=== PATIENT | female | born 2005 | race Two or more races ===

== ENCOUNTER 2024-06-25 15:20 | Observation (INO) | payer MEDICAID ==
--- NOTE | 2024-06-25 21:00 | DVHDS2 ---
Physician Discharge Progress N Final Diagnosis: testing for GDM, A2 Operations or Procedures: Operations or Procedures 19yo IUP@31.4wks, +FM, denies UCs/VB/LOF VSS NST reactive PO hydrated FKC/PTL precautions reviewed. Condition on Discharge: Stable Disposition: Home Discharge Instructions: Diet: Consistent carbohydrate Activity: No Restrictions, As Tolerated Medications: see med list Follow Up Care: Specialist: f/u twice weekly Discharge Statement: "Patient was advised to return to the ER or call 911 if any headaches, dizziness, shortness of breath, chest pain, abdominal pain, bleeding, fevers, or worsening of medical condition. Patient was counseled about treatment plan, medications, possible side effects, patientverbalized understanding. All questions were answered to the best of my ability. This discharge took greater then 30 minutes in planning, reviewing documentation, counseling the patient, and discussing with other team members." Visit Coding OBGYN Date of Service: Jun 25, 2024 Billing Provider: XENA CR CNM SUSTAINABILITY MANAGER Common Visit Codes: [id number] OBS CARE (HIGH) SUSTAINABILITY MANAGER Procedure Codes: 70901-30- NON-STRESS TEST XENA CR CNM Jun 25, 2024 21:00
[2024-07-09] MEDS ORDERED: NIFE10CA52 PO (16:38)
[2024-07-12] MEDS ORDERED: INSU1INJ19 SC (14:10)
== END 2024-06-25 17:59 | disposition home or self-care (01) ==
LOC: LDRP 15:20 → UNDOADMOB 15:20 → LDRP 15:51 → UNDODISOB 17:59
PROVIDERS: ADMIT Obstetrics & Gynecology; ATTEND Obstetrics & Gynecology
DX: O24.419 Gestational diabetes mellitus in pregnancy, unspecified control (principal); Z98.890 Other specified postprocedural states; Z79.899 Other long term (current) drug therapy; Z3A.31 31 weeks gestation of pregnancy
CPT/HCPCS: 59025; 81002; 82948; 82962; 94760; G0378

== ENCOUNTER 2024-06-28 08:29 | Observation (INO) | payer MEDICAID ==
[2024-06-28] MEDS ORDERED: PREN-96 PO (11:06)
--- NOTE | 2024-06-28 11:55 | DVH ---
Procedure: US BIOPHYSICAL PROFILE 06/28/2024 11:21 AM Indication: GDMA2 Comparison: None Technique: Sonogram of gravid uterus utilizing grayscale and color techniques. FINDINGS: Single living intrauterine gestation. Presentation: Cephalic Placenta: Posterior heart rate: 159 bpm CARLENE: 13.1 cm, DVP: 4 cm Maternal cervix: Not visualized Biophysical Profile: breathing score: 2 movement score: 2 tone: 2 Quantitative CARLENE score: 2 Total score: 8/8 IMPRESSION: 1. Single living as above. 2. Biophysical profile score: 8/8.
--- NOTE | 2024-06-28 15:05 | DVHDS2 ---
Physician Discharge Progress N Final Diagnosis: iup at 32wks gdm Operations or Procedures: Operations or Procedures [id number],sono Condition on Discharge: Good Disposition: Home Discharge Instructions: Diet: Regular, Consistent carbohydrate Activity: No Restrictions, As Tolerated Medications: na Follow Up Care: Specialist: 4d Discharge Statement: "Patient was advised to return to the ER or call 911 if any headaches, dizziness, shortness of breath, chest pain, abdominal pain, bleeding, fevers, or worsening of medical condition. Patient was counseled about treatment plan, medications, possible side effects, patientverbalized understanding. All questions were answered to the best of my ability. This discharge took greater then 30 minutes in planning, reviewing documentation, counseling the patient, and discussing with other team members." Visit Coding OBGYN Date of Service: Jun 28, 2024 Billing Provider: BHARATH BURKS DO DIRECTOR OF NUCLEAR MEDICINE Common Visit Codes: [id number] INP/OBS CARE (HIGH) DIRECTOR OF NUCLEAR MEDICINE Procedure Codes: 80278-95- NON-STRESS TEST BHARATH BURKS DO Jun 28, 2024 15:05
[2024-07-09] MEDS ORDERED: NIFE10CA52 PO (16:38)
[2024-07-12] MEDS ORDERED: INSU1INJ19 SC (14:10)
== END 2024-06-28 12:26 | disposition home or self-care (01) ==
LOC: LDRP 10:58 → UNDOADMOB 10:58 → LDRP 11:04
PROVIDERS: ADMIT Obstetrics & Gynecology; ATTEND Obstetrics & Gynecology
DX: O24.419 Gestational diabetes mellitus in pregnancy, unspecified control (principal); Z98.890 Other specified postprocedural states; Z79.899 Other long term (current) drug therapy; Z3A.32 32 weeks gestation of pregnancy
CPT/HCPCS: 59025; 76819; 81002; G0378; 76818

== ENCOUNTER 2024-07-02 06:56 | Observation (INO) | payer MEDICAID ==
[~2024-07-02 06:56] MED LIST: PREN-96 PO
--- NOTE | 2024-07-02 15:52 | DVH ---
EXAM: US BIOPHYSICAL PROFILE HISTORY: GDMA2 COMPARISON: US BIOPHYSICAL PROFILE on DOS: 06/28/24 TECHNIQUE: Multiple transabdominal real-time grayscale sonographic images through the gravid uterus of the fetus with duplex Doppler color flow and M-mode spectral analysis Findings/Impression: Single live intrauterine in vertex presentation with heart rate of 140 bpm. Biophysical profile was performed with 2 points for respirations, 2 points for movement, 2 points for tone and 2 points for amniotic fluid index. Biophysical profile score of 8/8. Amniotic fluid is within normal limits with CARLENE 15.5 cm and MVP 5.5 cm. Normal CARLENE (5-25 cm) Normal MVP (2-8 cm)
--- NOTE | 2024-07-04 12:47 | DVHDS2 ---
Physician Discharge Progress N Final Diagnosis: iu[p at 32wks gdm Operations or Procedures: Operations or Procedures nst,sono Condition on Discharge: Good Disposition: Home Discharge Instructions: Diet: Consistent carbohydrate Activity: No Restrictions, As Tolerated Follow Up/Referral: [facility] at [facility]:00 pm for NST/BPP Medications: na Follow Up Care: Specialist: 1w Discharge Statement: "Patient was advised to return to the ER or call 911 if any headaches, dizziness, shortness of breath, chest pain, abdominal pain, bleeding, fevers, or worsening of medical condition. Patient was counseled about treatment plan, medications, possible side effects, patientverbalized understanding. All questions were answered to the best of my ability. This discharge took greater then 30 minutes in planning, reviewing documentation, counseling the patient, and discussing with other team members." Visit Coding OBGYN Date of Service: Jul 02, 2024 Billing Provider: BHARATH BURKS DO COUNTRY SALES MANAGER Common Visit Codes: [id number] INP/OBS CARE(HIGH) COUNTRY SALES MANAGER Procedure Codes: 02990-26- NON-STRESS TEST BHARATH BURKS DO Jul 04, 2024 12:47
== END 2024-07-02 16:15 | disposition home or self-care (01) ==
LOC: LDRP 14:41 → UNDOADMOB 14:41 → LDRP 15:03
PROVIDERS: ADMIT Obstetrics & Gynecology; ATTEND Obstetrics & Gynecology
DX: O24.419 Gestational diabetes mellitus in pregnancy, unspecified control (principal); Z98.890 Other specified postprocedural states; Z79.899 Other long term (current) drug therapy; Z3A.32 32 weeks gestation of pregnancy
CPT/HCPCS: 59025; 76819; 81002; 82948; 82962; G0378; 76818

== ENCOUNTER 2024-07-05 13:03 | Observation (INO) | payer MEDICAID ==
--- NOTE | 2024-07-05 14:14 | DVH ---
BIOPHYSICAL PROFILE HISTORY: GDMA2 TECHNIQUE: Multiple transabdominal real-time grayscale sonographic images through the gravid uterus of the fetus with duplex Doppler color flow and M-mode spectral analysis FINDINGS: BIOPHYSICAL PROFILE: breathing score: 2 movement score: 2 tone score: 2 Quantitative CARLENE score: 2 (CARLENE: 15.2 Cm.) Total score: 8 The cervix not well visualized. Single live fetus in cephalic presentation. heart rate 152 beats per minute. Posterior placenta without previa or abruption Possible nuchal cord is visualized. IMPRESSION: Biophysical profile score: 8 Possible nuchal cord is visualized.
--- NOTE | 2024-07-05 15:29 | DVHDS2 ---
Physician Discharge Progress N Final Diagnosis: 33wks gdm Operations or Procedures: Operations or Procedures nst,sono Condition on Discharge: Good Disposition: Home Discharge Instructions: Diet: Consistent carbohydrate Activity: No Restrictions, As Tolerated Medications: na Follow Up Care: Specialist: 1w Discharge Statement: "Patient was advised to return to the ER or call 911 if any headaches, dizziness, shortness of breath, chest pain, abdominal pain, bleeding, fevers, or worsening of medical condition. Patient was counseled about treatment plan, medications, possible side effects, patientverbalized understanding. All questions were answered to the best of my ability. This discharge took greater then 30 minutes in planning, reviewing documentati on, counseling the patient, and discussing with other team members." Visit Coding OBGYN Date of Service: Jul 05, 2024 Billing Provider: BHARATH BURKS DO PAINT STOCKMAN Common Visit Codes: 25461-OIRTQKM INP/OBS CARE (HIGH) PAINT STOCKMAN Procedure Codes: 75667-24- NON-STRESS TEST BHARATH BURKS DO Jul 05, 2024 15:29
== END 2024-07-05 16:32 | disposition home or self-care (01) ==
LOC: UNDOADMOB 13:03 → LDRP 13:03
PROVIDERS: ADMIT Obstetrics & Gynecology; ATTEND Obstetrics & Gynecology
DX: O24.419 Gestational diabetes mellitus in pregnancy, unspecified control (principal); Z98.890 Other specified postprocedural states; Z79.899 Other long term (current) drug therapy; Z3A.33 33 weeks gestation of pregnancy
CPT/HCPCS: 59025; 76819; 81002; 82948; 82962; G0378

== ENCOUNTER 2024-07-09 15:29 | Observation (INO) | payer MEDICAID ==
[~2024-07-09] VITALS: Ht 167.6 cm; Wt 110.2 kg
--- NOTE | 2024-07-09 16:11 | DVH ---
BIOPHYSICAL PROFILE HISTORY: GDMA2 Comparison Study: 07/05/2024 TECHNIQUE: Multiple real-time grayscale sonographic images through the gravid uterus of the fetus wi th duplex Doppler color flow and M-mode spectral analysis FINDINGS: BIOPHYSICAL PROFILE: breathing score: 2 movement score: 2 tone score: 2 Quantitative CARLENE score: 2 (CARLENE: 18.2 Cm.) Total score: 8 The cervix is not visualized Single live fetus in cephalic presentation. heart rate 155 beats per minute. Posterior placenta without previa or abruption IMPRESSION: Biophysical profile score: 8 No nuchal cord is visualized. Nuchal cord appears draped over the face at this time.
[2024-07-09] MEDS ORDERED: NIFE10CA52 PO ×3 (16:38)
[2024-07-09] MEDS: NIFEdipine 10 MG CAP PO ONE (17:05)
[2024-07-09] MEDS: BETAMETHASONE ACET (30mg/5ml) 5ml Vial 6mg/ml IM ONE (17:12)
[2024-07-09] MEDS: TERBUTALINE SULFATE 1 MG/ML 1ML VIAL SC SCH (17:17)
--- NOTE | 2024-07-09 17:26 | DVH ---
OBSTETRIC ULTRASOUND PRIOR TO 14 WEEKS CLINICAL INDICATION: PTL, cervial length TECHNIQUE: Multiple grayscale ultrasound images were obtained of the pelvis via transabdominal and tr ansvaginal approach for obstetric evaluation. Limited color Doppler and spectral Doppler acquisitions were also obtained. COMPARISON: None FINDINGS /IMPRESSION: 1. Current CARLENE 18.21 cm 2. presentation cephalic 3. Posterior position posterior 4. heart tones 155 beats per minute
[2024-07-09] MEDS: LACTATED RINGER'S 1,000 ML IV ONE (17:43)
--- NOTE | 2024-07-09 23:08 | DVHDS2 ---
Physician Discharge Progress N Final Diagnosis: testing for GDMA2/PTL Operations or Procedures: Operations or Procedures 19yo IUP@33.4wks VSS NST reactive TOCO: UCs noted, 1L LR IV bolus, terbutaline SQ x1, and first dose of betamethasone given; No UCs prior to D/C BPP/OB sono wnl FKC/PTL precautions reviewed Dr. Reveles consulted, agrees with POC. Rx sent for procardia. f/u in 24 hours for second dose of betamethasone Condition on Discharge: Stable Disposition: Home Discharge Instructions: Diet: Consistent carbohydrate Activity: See Comment Activity comment: pelvic rest Follow Up/Referral: [facility] at 7pm for scheduled NST and second dose of Celestone. Medications: see med list Follow Up Care: Specialist: f/u in 24 hours for second dose of betamethasone Discharge Statement: "Patient was advised to return to the ER or call 911 if any headaches, dizziness, shortness of breath, chest pain, abdominal pain, bleeding, fevers, or worsening of medical condition. Patient was counseled about treatment plan, medications, possible side effects, patientverbalized understanding. All questions were answered to the best of my ability. This discharge took greater then 30 minutes in planning, reviewing documentation, counseling the patient, and discussing with other team members." Visit Coding OBGYN Date of Service: Jul 09, 2024 Billing Provider: XENA CR CNM HEALTH CARE MARKETING MANAGER Common Visit Codes: [id number] OBS CARE (HIGH) HEALTH CARE MARKETING MANAGER Procedure Codes: 93773-95- NON-STRESS TEST XENA CR CNM Jul 09, 2024 23:08
== END 2024-07-09 20:17 | disposition home or self-care (01) ==
LOC: LDRP 15:29 → UNDOADMOB 15:29 → LDRP 15:33 → UNDODISOB 20:17
PROVIDERS: ADMIT Obstetrics & Gynecology; ATTEND Obstetrics & Gynecology
DX: O24.419 Gestational diabetes mellitus in pregnancy, unspecified control (principal); O60.03 Preterm labor without delivery, third trimester; Z3A.33 33 weeks gestation of pregnancy; Z79.899 Other long term (current) drug therapy
CPT/HCPCS: 59025; 76815; 76819; 81002; 82948; 82962; 94760; 96360; 96361; 96372; G0378; J0702; J3105

== ENCOUNTER 2024-07-10 19:00 | Observation (INO) | payer MEDICAID ==
[~2024-07-10] VITALS: Ht 64 cm; Wt 81.6 kg
[~2024-07-10 19:00] MED LIST changes: +NIFE10CA52 PO
[2024-07-10] MEDS: BETAMETHASONE ACET (30mg/5ml) 5ml Vial 6mg/ml IM ONE (20:49)
--- NOTE | 2024-07-10 22:59 | DVHDS2 ---
Physician Discharge Progress N Final Diagnosis: GDM,A2 and PTL Operations or Procedures: Operations or Procedures 19yo IUP@33.5wks VSS NST reactive TOCO: no UCs 2nd dose of celestone given FKC/PTL precautions reviewed Dr. Reveles consulted, agrees with POC. Condition on Discharge: Stable Disposition: Home Discharge Instructions: Diet: Consistent carbohydrate Activity: See Comment Activity comment: pelvic rest Medications: see med list Follow Up Care: Specialist: f/u twice weekly Discharge Statement: "Patient was advised to return to the ER or call 911 if any headaches, dizziness, shortness of breath, chest pain, abdominal pain, bleeding, fevers, or worsening of medical condition. Patient was counseled about treatment plan, medications, possible side effects, patientverbalized understanding. All questions were answered to the best of my ability. This discharge took greater then 30 minutes in planning, reviewing documentation, counseling the patient, and discussing with other team members." Visit Coding OBGYN Date of Service: Jul 10, 2024 Billing Provider: XENA CR CNM LASER SYSTEMS ENGINEER Common Visit Codes: [id number]-[id number] OBS CARE (HIGH) LASER SYSTEMS ENGINEER Procedure Codes: 19346-84- NON-STRESS TEST XENA CR CNM Jul 10, 2024 22:59
[2024-07-12] MEDS ORDERED: INSU1INJ19 SC (14:10)
== END 2024-07-10 21:20 | disposition home or self-care (01) ==
LOC: LDRP 19:00
PROVIDERS: ADMIT Obstetrics & Gynecology; ATTEND Obstetrics & Gynecology
DX: O24.419 Gestational diabetes mellitus in pregnancy, unspecified control (principal); O60.03 Preterm labor without delivery, third trimester; Z3A.33 33 weeks gestation of pregnancy; Z79.899 Other long term (current) drug therapy
CPT/HCPCS: 81002; 82948; 82962; 94760; 96372; G0378

== ENCOUNTER 2024-07-12 07:17 | Observation (INO) | payer MEDICAID ==
[~2024-07-12] VITALS: Ht 200.7 cm; Wt 86.2 kg
[2024-07-12] MEDS ORDERED: INSU1INJ19 SC ×2 (14:10)
--- NOTE | 2024-07-12 14:15 | DVH ---
BIOPHYSICAL PROFILE HISTORY: GDMA2, PTL Comparison Study: 07/09/2024 TECHNIQUE: Multiple real-time grayscale sonographic images through the gravid uterus of the fetus wi th duplex Doppler color flow and M-mode spectral analysis FINDINGS: BIOPHYSICAL PROFILE: breathing score: 2 movement score: 2 tone score: 2 Quantitative CARLENE score: 2 (CARLENE: 14.1 Cm.) Total score: 8 The cervix is not visualized Single live fetus in cephalic presentation. heart rate 159 beats per minute. Posterior placenta without previa or abruption Cervix measures 3.4 cm. IMPRESSION: Biophysical profile score: 8
--- NOTE | 2024-07-12 15:28 | DVHDS2 ---
Physician Discharge Progress N Final Diagnosis: 34 wks with gdm Operations or Procedures: Operations or Procedures nst,ivon 34 wks Condition on Discharge: Good Disposition: Home Discharge Instructions: Diet: Consistent carbohydrate Activity: No Restrictions, As Tolerated Medications: na Follow Up Care: Specialist: 1w Discharge Statement: "Patient was advised to return to the ER or call 911 if any headaches, dizziness, shortness of breath, chest pain, abdominal pain, bleeding, fevers, or worsening of medical condition. Patient was counseled about treatment plan, medications, possible side effects, patientverbalized understanding. All questions were answered to the best of my ability. This discharge took greater then 30 minutes in planning, reviewing documentation, counseling the patient, and discussing with other team members." Visit Coding OBGYN Date of Service: Jul 12, 2024 Billing Provider: BHARATH BURKS DO TEST CENTER ADMINISTRATOR Common Visit Codes: 90450-[id number] INP/OBS CARE (HIGH) TEST CENTER ADMINISTRATOR Procedure Codes: 01592-50- NON-STRESS TEST BHARATH BURKS DO Jul 12, 2024 15:28
== END 2024-07-12 15:45 | disposition home or self-care (01) ==
LOC: LDRP 13:08 → UNDOADMOB 13:08 → LDRP 13:15
PROVIDERS: ADMIT Obstetrics & Gynecology; ATTEND Obstetrics & Gynecology
DX: O24.419 Gestational diabetes mellitus in pregnancy, unspecified control (principal); O60.03 Preterm labor without delivery, third trimester; Z98.890 Other specified postprocedural states; Z79.899 Other long term (current) drug therapy; Z3A.34 34 weeks gestation of pregnancy
CPT/HCPCS: 59025; 76819; 81002; 82948; 96360; 96361; G0378

== ENCOUNTER 2024-07-16 06:38 | Observation (INO) | payer MEDICAID ==
[~2024-07-16 06:38] MED LIST changes: +INSU1INJ19 SC
--- NOTE | 2024-07-16 14:36 | DVH ---
BIOPHYSICAL PROFILE HISTORY: GDMA2/PTL Comparison Study: None TECHNIQUE: Multiple real-time grayscale sonographic images through the gravid uterus of the fetus wi th duplex Doppler color flow and M-mode spectral analysis FINDINGS: BIOPHYSICAL PROFILE: breathing score: 2 movement score: 2 tone score: 2 Quantitative CARLENE score: 2 (CARLENE: 14.2 Cm.) Total score: 8 The cervix is not visualized Single live fetus in cephalic presentation. heart rate 153 beats per minute. Posterior placenta without previa or abruption IMPRESSION: Biophysical profile score: 8
--- NOTE | 2024-07-16 15:48 | DVHDS2 ---
Physician Discharge Progress N Final Diagnosis: GDM Hx of labor Commentary: Commentary PATIENT: JORGE LUIS LOVE ACCT: [id number] UNIT: [id number] : 2005 LOC: [facility] ROOM / BED: [facility] / A AGE / SEX: 19 / F ADM STATUS: ADM IN SERVICE 1323 ORDERING PHYSICIAN: KHUSHBOO JOSHI DO PROCEDURE(s): BPP - BIOPHYSICAL PROFILE REASON: GDMA2/PTL ORDER NUMBER(s): [id number], ACCESSION NUMBER(s): [id number] BIOPHYSICAL PROFILE HISTORY: GDMA2/PTL Comparison Study: None TECHNIQUE: Multiple real-time grayscale sonographic images through the gravid uterus of the fetus with duplex Doppler color flow and M-mode spectral analysis FINDINGS: BIOPHYSICAL PROFILE: breathing score: 2 movement score: 2 tone score: 2 Quantitative CARLENE score: 2 (CARLENE: 14.2 Cm.) Total score: 8 The cervix is not visualized Single live fetus in cephalic presentation. heart rate 153 beats per minute. Posterior placenta without previa or abruption IMPRESSION: Biophysical profile score: 8 Condition on Discharge: Stable Disposition: Home Discharge Instructions: Diet: Consistent carbohydrate Activity: Light activity Follow Up/Referral: 3-4 days Medications: N/A Follow Up Care: Discharge Statement: "Patient was advised to return to the ER or call 911 if any headaches, dizziness, shortness of breath, chest pain, abdominal pain, bleeding, fevers, or worsening of medical condition. Patient was counseled about treatment plan, medications, possible side effects, patientverbalized understanding. All questions were answered to the best of my ability. This discharge took greater then 30 minutes in planning, reviewing documentation, counseling the patient, and discussing with other team members." Visit Coding OBGYN Date of Service: Jul 16, 2024 Billing Provider: KHUSHBOO JOSHI DO STORE SALES MANAGER Common Visit Codes: 30065-NND/OBS SAME DATE (MOD) STORE SALES MANAGER Procedure Codes: 08566-47- NON-STRESS TEST KHUSHBOO JOSHI DO Jul 16, 2024 15:48
== END 2024-07-16 16:40 | disposition home or self-care (01) ==
LOC: LDRP 13:14 → UNDOADMOB 13:14 → LDRP 13:24
PROVIDERS: ADMIT Obstetrics & Gynecology; ATTEND Obstetrics & Gynecology
DX: O60.03 Preterm labor without delivery, third trimester (principal); O24.419 Gestational diabetes mellitus in pregnancy, unspecified control; Z98.890 Other specified postprocedural states; Z79.899 Other long term (current) drug therapy; Z3A.34 34 weeks gestation of pregnancy
CPT/HCPCS: 59025; 76819; 81002; 82948; 82962; 94760; G0378

== ENCOUNTER 2024-07-19 11:14 | Observation (INO) | payer MEDICAID ==
--- NOTE | 2024-07-19 12:02 | DVH ---
Procedure: US BIOPHYSICAL PROFILE 07/19/2024 11:24 AM Indication: gdma2 Comparison: US BIOPHYSICAL PROFILE on DOS: 07/16/24, US BIOPHYSICAL PROFILE on DOS: 07/12/24, US BIOPHY SICAL PROFILE on DOS: 07/09/24 Technique: Sonogram of gravid uterus utilizing grayscale and color techniques. FINDINGS: Single living intrauterine gestation. Presentation: Cephalic Placenta: Posterior, grade 2 heart rate: 143 bpm CARLENE: 12.3 cm, DVP: 3.8 cm Maternal cervix: 2.5 cm in length in the transvaginal scan Biophysical Profile: breathing score: 2 movement score: 2 tone: 2 Quantitative CARLENE score: 2 Total score: 8/8 IMPRESSION: 1. Single living as above. 2. Biophysical profile score: 8/8.
--- NOTE | 2024-07-19 13:44 | DVHDS2 ---
Physician Discharge Progress N Final Diagnosis: gdm,ptl 35wks Operations or Procedures: Operations or Procedures nst,sono Condition on Discharge: Good Disposition: Home Discharge Instructions: Diet: Consistent carbohydrate Activity: No Restrictions, As Tolerated Medications: na Follow Up Care: Specialist: 1w Discharge Statement: "Patient was advised to return to the ER or call 911 if any headaches, dizziness, shortness of breath, chest pain, abdominal pain, bleeding, fevers, or worsening of medical condition. Patient was counseled about treatment plan, medications, possible side effects, patientverbalized understanding. All questions were answered to the best of my ability. This discharge took greater then 30 minutes in planning, reviewing documen tation, counseling the patient, and discussing with other team members." Visit Coding OBGYN Date of Service: Jul 19, 2024 Billing Provider: BHARATH BURKS DO ASSISTANT ACCOUNTING MANAGER Common Visit Codes: [id number] INP/OBS CARE (HIGH) ASSISTANT ACCOUNTING MANAGER Procedure Codes: 83634-84- NON-STRESS TEST BHARATH BURKS DO Jul 19, 2024 13:44
== END 2024-07-19 12:26 | disposition home or self-care (01) ==
LOC: LDRP 11:14
PROVIDERS: ADMIT Obstetrics & Gynecology; ATTEND Obstetrics & Gynecology
DX: O24.419 Gestational diabetes mellitus in pregnancy, unspecified control (principal); O60.03 Preterm labor without delivery, third trimester; Z3A.35 35 weeks gestation of pregnancy; Z79.899 Other long term (current) drug therapy
CPT/HCPCS: 59025; 76817; 76819; 81002; 82948; 82962; 94760; G0378

== ENCOUNTER 2024-07-23 07:07 | Observation (INO) | payer MEDICAID ==
[~2024-07-23] VITALS: Ht 167.6 cm; Wt 108.9 kg
--- NOTE | 2024-07-23 15:04 | DVH ---
BIOPHYSICAL PROFILE HISTORY: GDMA2/PTL TECHNIQUE: Multiple transabdominal real-time grayscale sonographic images through the gravid uterus of the fetus with duplex Doppler color flow and M-mode spectral analysis FINDINGS: BIOPHYSICAL PROFILE: breathing score: 2 movement score: 2 tone score: 2 Quantitative CARLENE score: 2 (CARLENE: 13.97 Cm.) Total score: 8 The cervix is not well-visualized Single live fetus in cephalic presentation. heart rate 144 beats per minute. Anterior placenta without previa or abruption IMPRESSION: Biophysical profile score: 8
[2024-07-23] MEDS: TERBUTALINE SULFATE 1 MG/ML 1ML VIAL SC SCH (15:40)
--- NOTE | 2024-07-23 23:23 | DVHDS2 ---
Physician Discharge Progress N Final Diagnosis: testing for GDM, A2 Operations or Procedures: Operations or Procedures 19yo IUP@35.4wks, +FM, denies UCs/LOF/VB, taking procardia. Pt has received 2 doses of betamethasone during previous visits. VSS NST reactive TOCO: UCs noted, terbutaline SQx1 given then no UCs FKC/PTL precautions reviewed Dr. Reveles consulted, agrees with POC. Other Interventions Other Interventions [place] [id number] Ph: [phone] DIAGNOSTIC IMAGING Diagnostic Imaging Report : [id number] Signed PATIENT: JORGE LUIS LOVE ACCT: [id number] UNIT: [id number] : 2005 LOC: [facility] ROOM / BED: TRIAGE1 / A AGE / SEX: 19 / F ADM STATUS: ADM IN SERVICE 1428 ORDERING PHYSICIAN: XENA CR CNM PROCEDURE(s): BPP - BIOPHYSICAL PROFILE REASON: GDMA2/PTL ORDER NUMBER(s): [id number], ACCESSION NUMBER(s): [id number] BIOPHYSICAL PROFILE HISTORY: GDMA2/PTL TECHNIQUE: Multiple transabdominal real-time grayscale sonographic images through the gravid uterus of the fetus with duplex Doppler color flow and M-mode spectral analysis FINDINGS: BIOPHYSICAL PROFILE: breathing score: 2 movement score: 2 tone score: 2 Quantitative CARLENE score: 2 (CARLENE: 13.97 Cm.) Total score: 8 The cervix is not well-visualized Single live fetus in cephalic presentation. heart rate 144 beats per minute. Anterior placenta without previa or abruption IMPRESSION: Biophysical profile score: 8 ATED BY: MILLY DE LEÓN DO DICTATED DATE/TIME: 07/23/241501 SIGNED BY: MILLY DE LEÓN DO SIGNED DATE/TIME: 07/23/241501 CC: Condition on Discharge: Stable Disposition: Home Discharge Instructions: Diet: Consistent carbohydrate Activity: See Comment Activity comment: pelvic rest Medications: see med list Follow Up Care: Specialist: f/u in 3 days Discharge Statement: "Patient was advised to return to the ER or call 911 if any headaches, dizziness, shortness of breath, chest pain, abdominal pain, bleeding, fevers, or worsening of medical condition. Patient was counseled about treatment plan, medications, possible side effects, patientverbalized understanding. All questions were answered to the best of my ability. This discharge took greater then 30 minutes in planning, reviewing documentation, counseling the patient, and discussing with other team members." Visit Coding OBGYN Date of Service: Jul 23, 2024 Billing Provider: XENA CR CNM SUPERINTENDENT TESTS Common Visit Codes: [id number] OBS CARE (HIGH) SUPERINTENDENT TESTS Procedure Codes: 75278-25- NON-STRESS TEST XENA CR CNM Jul 23, 2024 23:23
== END 2024-07-23 16:12 | disposition home or self-care (01) ==
LOC: LDRP 14:18
PROVIDERS: ADMIT Obstetrics & Gynecology; ATTEND Obstetrics & Gynecology
DX: O24.419 Gestational diabetes mellitus in pregnancy, unspecified control (principal); Z98.890 Other specified postprocedural states; Z79.899 Other long term (current) drug therapy; Z3A.35 35 weeks gestation of pregnancy
CPT/HCPCS: 76818; 81002; 82948; 82962; 94760; 96372; G0378; J3105; 76819

== ENCOUNTER 2024-07-26 10:07 | Observation (INO) | payer MEDICAID ==
--- NOTE | 2024-07-26 15:09 | DVH ---
BIOPHYSICAL PROFILE HISTORY: GDMA1 TECHNIQUE: Multiple transabdominal real-time grayscale sonographic images through the gravid uterus of the fetus with duplex Doppler color flow and M-mode spectral analysis FINDINGS: BIOPHYSICAL PROFILE: breathing score: 2 movement score: 2 tone score: 2 Quantitative CARLENE score: 2 (CARLENE: 15.8 Cm.) Total score: 8 4/8 The cervix measuring Single live fetus in cephalic presentation. heart rate 148 beats per minute. Posterior Grade 2-3 placenta without previa or abruption Single live fetus at 36 weeks 0 days Biophysical profile score 8/8 corresponding to an NILESH of 08/23/2024 Estimated weight not calculated g IMPRESSION: 1. Biophysical profile score: 8/8
--- NOTE | 2024-07-27 06:24 | DVHDS2 ---
Physician Discharge Progress N Final Diagnosis: gdm 36wks Operations or Procedures: Operations or Procedures nst,sono Condition on Discharge: Good Disposition: Home Discharge Instructions: Diet: Consistent carbohydrate Activity: No Restrictions, As Tolerated Medications: na Follow Up Care: Specialist: 4d Discharge Statement: "Patient was advised to return to the ER or call 911 if any headaches, dizziness, shortness of breath, chest pain, abdominal pain, bleeding, fevers, or worsening of medical condition. Patient was counseled about treatment plan, medications, possible side effects, patientverbalized understanding. All questions were answered to the best of my ability. This discharge took greater then 30 minutes in planning, reviewing documentati on, counseling the patient, and discussing with other team members." Visit Coding OBGYN Date of Service: Jul 26, 2024 Billing Provider: BHARATH BURKS DO CERTIFIED SUBSTANCE ABUSE COUNSELOR Common Visit Codes: 25361-[id number] INP/OBS CARE (MOD), 94275-QXODOML INP/OBS CARE (HIGH), 55947-[id number] INP/OBS CARE(LOW), 89719-[id number] INP/O BS CARE(HIGH) CERTIFIED SUBSTANCE ABUSE COUNSELOR Procedure Codes: 50168-92- NON-STRESS TEST BHARATH BURKS DO Jul 27, 2024 06:24
== END 2024-07-26 16:15 | disposition home or self-care (01) ==
LOC: LDRP 13:40 → UNDOADMOB 13:40 → LDRP 13:55
PROVIDERS: ADMIT Obstetrics & Gynecology; ATTEND Obstetrics & Gynecology
DX: O24.419 Gestational diabetes mellitus in pregnancy, unspecified control (principal); Z3A.36 36 weeks gestation of pregnancy; Z79.899 Other long term (current) drug therapy
CPT/HCPCS: 76818; 81002; 82948; 82962; 94760; G0378; 76819

== ENCOUNTER 2024-07-30 07:34 | Observation (INO) | payer MEDICAID ==
--- NOTE | 2024-07-30 15:45 | DVH ---
EXAM: US BIOPHYSICAL PROFILE HISTORY: GDMA2 COMPARISON: US BIOPHYSICAL PROFILE on DOS: 07/26/24, US BIOPHYSICAL PROFILE on DOS: 07/23/24, US BIOPHYSI HILDA PROFILE on DOS: 07/19/24 TECHNIQUE: Multiple transabdominal real-time grayscale sonographic images through the gravid uterus of the fetus with duplex Doppler color flow and M-mode spectral analysis Findings/Impression: Single live intrauterine in vertex presentation with heart rate of 147 bpm. Biophysical profile was performed with 2 points for respirations, 2 points for movement, 2 points for tone and 2 points for amniotic fluid index. Biophysical profile score of 8/8. Amniotic fluid is within normal limits with CARLENE 13.7 cm and MVP 5.5 cm. Normal CARLENE (5-25 cm) Normal MVP (2-8 cm)
--- NOTE | 2024-07-30 22:07 | DVHDS2 ---
Physician Discharge Progress N Final Diagnosis: testing for GDM, A2 Operations or Procedures: Operations or Procedures 19yo IUP@36.4wks, +FM, denies UCs/LOF/VB, stopped taking procardia at 36wks VSS NST reactive FKC/PTL precautions reviewed Other Interventions Other Interventions [address] [address] Ph: [phone] DIAGNOSTIC IMAGING Diagnostic Imaging Report : [id number] Signed PATIENT: JORGE LUIS LOVE ACCT: [id number] UNIT: [id number] : 2005 LOC: [facility] ROOM / BED: TRIAGE2 / A AGE / SEX: 19 / F ADM STATUS: ADM IN SERVICE 145 ORDERING PHYSICIAN: XENA CR CNM PROCEDURE(s): BPP - BIOPHYSICAL PROFILE REASON: GDMA2 ORDER NUMBER(s): [id number], ACCESSION NUMBER(s): [id number] EXAM: US BIOPHYSICAL PROFILE HISTORY: GDMA2 COMPARISON: US BIOPHYSICAL PROFILE on DOS: 07/26/24, US BIOPHYSICAL PROFILE on DOS: 07/23/24, US BIOPHYSICAL PROFILE on DOS: 07/19/24 TECHNIQUE: Multiple transabdominal real-time grayscale sonographic images through the gravid uterus of the fetus with duplex Doppler color flow and M-mode spectral analysis Findings/Impression: Single live intrauterine in vertex presentation with heart rate of 147 bpm. Biophysical profile was performed with 2 points for respirations, 2 points for movement, 2 points for tone and 2 points for amniotic fluid index. Biophysical profile score of 8/8. Amniotic fluid is within normal limits with CARLENE 13.7 cm and MVP 5.5 cm. Normal CARLENE (5-25 cm) Normal MVP (2-8 cm) ATED BY: CINDY WHELAN DO DICTATED DATE/TIME: 07/30/241542 SIGNED BY: CINDY WHELAN DO SIGNED DATE/TIME: 07/30/241542 CC: Condition on Discharge: Stable Disposition: Home Discharge Instructions: Diet: Consistent carbohydrate Activity: No Restrictions, As Tolerated Medications: see med list Follow Up Care: Specialist: f/u in 3 days Discharge Statement: "Patient was advised to return to the ER or call 911 if any headaches, dizzin ess, shortness of breath, chest pain, abdominal pain, bleeding, fevers, or worsening of medical condition. Patient was counseled about treatment plan, medications, possible side effects, patientverbalized understanding. All questions were answered to the best of my ability. This discharge took greater then 30 minutes in planning, reviewing documentation, counseling the patient, and discussing with other team members." Visit Coding OBGYN Date of Service: Jul 30, 2024 Billing Provider: XENA CR CNM KAIAWHINA KURA KAUPAPA MAORI Common Visit Codes: 88918-GRNXIJB OBS CARE (HIGH) KAIAWHINA KURA KAUPAPA MAORI Procedure Codes: 47388-10- NON-STRESS TEST XENA CR CNM Jul 30, 2024 22:07
== END 2024-07-30 16:07 | disposition home or self-care (01) ==
LOC: UNDOADMOB 14:45 → LDRP 14:45
PROVIDERS: ADMIT Obstetrics & Gynecology; ATTEND Obstetrics & Gynecology
DX: O24.419 Gestational diabetes mellitus in pregnancy, unspecified control (principal); Z98.890 Other specified postprocedural states; Z79.899 Other long term (current) drug therapy; Z3A.36 36 weeks gestation of pregnancy
CPT/HCPCS: 59025; 76819; 81002; 82948; 82962; 94760; G0378

== ENCOUNTER 2024-08-02 14:54 | Observation (INO) | payer MEDICAID ==
--- NOTE | 2024-08-02 15:39 | DVH ---
BIOPHYSICAL PROFILE HISTORY: gdma1 TECHNIQUE: Multiple transabdominal real-time grayscale sonographic images through the gravid uterus of the fetus with duplex Doppler color flow and M-mode spectral analysis FINDINGS: BIOPHYSICAL PROFILE: breathing score: 2 movement score: 2 tone score: 2 Quantitative CARLENE score: 2 (CARLENE: 12.5 Cm.) Total score: 8/8 The cervix not seen Single live fetus in cephalic presentation. heart rate 147 beats per minute. Posterior Grade 2 placenta without previa or abruption Single live fetus at 37 weeks 0 days Biophysical profile score 8/8 corresponding to an NILESH of 08/23/2024 Estimated weight not calculi g IMPRESSION: 1. Biophysical profile score: 8/8 HS:Y
== END 2024-08-02 16:08 | disposition home or self-care (01) ==
LOC: LDRP 14:54 → UNDOADMOB 14:54 → LDRP 15:00
PROVIDERS: ADMIT Obstetrics & Gynecology; ATTEND Obstetrics & Gynecology
DX: O24.419 Gestational diabetes mellitus in pregnancy, unspecified control (principal); Z3A.36 36 weeks gestation of pregnancy; Z79.899 Other long term (current) drug therapy; Z98.890 Other specified postprocedural states
CPT/HCPCS: 59025; 76819; 81002; 82948; 94760; G0378

== ENCOUNTER 2024-08-06 06:10 | Observation (INO) | payer MEDICAID ==
--- NOTE | 2024-08-06 15:36 | DVH ---
BIOPHYSICAL PROFILE HISTORY: gdma2 TECHNIQUE: Multiple transabdominal real-time grayscale sonographic images through the gravid uterus of the fetus with duplex Doppler color flow and M-mode spectral analysis FINDINGS: BIOPHYSICAL PROFILE: breathing score: 2 movement score: 2 tone score: 2 Quantitative CARLENE score: 2 (CARLENE: 13.26 Cm.) Total score: 8 4/8 The cervix obscured by head Single live fetus in cephalic presentation. heart rate 149 beats per minute. Posterior Grade 2 placenta without previa or abruption Single live fetus at 37 weeks 4 days Biophysical profile score 8/8 corresponding to an NILESH of 08/23/2024 Estimated weight not calculated g IMPRESSION: 1. Biophysical profile score: 8/8
--- NOTE | 2024-08-06 18:02 | DVHDS2 ---
Physician Discharge Progress N Final Diagnosis: GDM 37WKS Operations or Procedures: Operations or Procedures NST,SONO Condition on Discharge: Good Disposition: Home Discharge Instructions: Diet: Regular Activity: No Restrictions, As Tolerated Medications: NA Follow Up Care: Specialist: 3D Discharge Statement: "Patient was advised to return to the ER or call 911 if any headaches, dizziness, shortness of breath, chest pain, abdominal pain, bleeding, fevers, or worsening of medical condition. Patient was counseled about treatment plan, medications, possible side effects, patientverbalized understanding. All questions were answered to the best of my ability. This discharge took greater then 30 minutes in planning, reviewing documentation, counseling the patient, and discussing with other team members." Visit Coding OBGYN Date of Service: Aug 06, 2024 Billing Provider: BHARATH BURKS DO INDUSTRIAL COMMERCIAL GROUNDSKEEPER Common Visit Codes: [id number] INP/OBS CARE(HIGH) INDUSTRIAL COMMERCIAL GROUNDSKEEPER Procedure Codes: 81245-67- NON-STRESS TEST BHARATH BURKS DO Aug 06, 2024 18:02
== END 2024-08-06 16:09 | disposition home or self-care (01) ==
LOC: LDRP 14:46 → UNDOADMOB 14:46 → LDRP 15:00
PROVIDERS: ADMIT Obstetrics & Gynecology; ATTEND Obstetrics & Gynecology
DX: O24.419 Gestational diabetes mellitus in pregnancy, unspecified control (principal); Z3A.37 37 weeks gestation of pregnancy; Z79.899 Other long term (current) drug therapy
CPT/HCPCS: 59025; 76819; 81002; 82948; 82962; 94760; G0378

== ENCOUNTER 2024-08-13 07:08 | Observation (INO) | payer MEDICAID ==
--- NOTE | 2024-08-13 13:54 | DVH ---
BIOPHYSICAL PROFILE HISTORY: GDMA2 Comparison Study: TECHNIQUE: Multiple real-time grayscale sonographic images through the gravid uterus of the fetus wi th duplex Doppler color flow and M-mode spectral analysis FINDINGS: BIOPHYSICAL PROFILE: breathing score: 2 movement score: 2 tone score: 2 Quantitative CARLENE score: 2 (CARLENE: 12.3 Cm.) Total score: 8 The cervix is not visualized Single live fetus in cephalic presentation. heart rate 127 beats per minute. Posterior placenta without previa or abruption IMPRESSION: Biophysical profile score:
--- NOTE | 2024-08-13 19:18 | DVHDS2 ---
Physician Discharge Progress N Final Diagnosis: testing for GDM, A2 Operations or Procedures: Operations or Procedures 19yo IUP@38+wks VSS NST reactive FKC/labor precautions reviewed Dr. Reveles consulted, agrees with POC Other Interventions Other Interventions [address] [address] Ph: [phone] DIAGNOSTIC IMAGING Diagnostic Imaging Report : [id number] Signed PATIENT: JORGE LUIS LOVE ACCT: [id number] UNIT: [id number] : 2005 LOC: [facility] ROOM / BED: TRIAGE2 / A AGE / SEX: 19 / F ADM STATUS: ADM IN SERVICE 1314 ORDERING PHYSICIAN: XENA CR CNM PROCEDURE(s): BPP - BIOPHYSICAL PROFILE REASON: GDMA2 ORDER NUMBER(s): [id number], ACCESSION NUMBER(s): [id number] BIOPHYSICAL PROFILE HISTORY: GDMA2 Comparison Study: TECHNIQUE: Multiple real-time grayscale sonographic images through the gravid uterus of the fetus with duplex Doppler color flow and M-mode spectral analysis FINDINGS: BIOPHYSICAL PROFILE: breathing score: 2 movement score: 2 tone score: 2 Quantitative CARLENE score: 2 (CARLENE: 12.3 Cm.) Total score: 8 The cervix is not visualized Single live fetus in cephalic presentation. heart rate 127 beats per minute. Posterior placenta without previa or abruption IMPRESSION: Biophysical profile score: ATED BY: JOÃO RIVAS MD DICTATED DATE/TIME: 08/13/24 1351 SIGNED BY: JOÃO RIVAS MD SIGNED DATE/TIME: 08/13/24 1351 CC: Condition on Discharge: Stable Disposition: Home Discharge Instructions: Diet: Consistent carbohydrate Activity: No Restrictions, As Tolerated Medications: see med list Follow Up Care: Specialist: f/u in 3 days Discharge Statement: "Patient was advised to return to the ER or call 911 if any headaches, dizziness, shortness of breath, chest pain, abdominal pain, bleeding, fevers, or worsening of medical condition. Patient was counseled about treatment plan, medications, possible side effects, patientverbalized understanding. All questions were answered to the best of my ability. This discharge took greater then 30 minutes in planning, reviewing documentation, counseling the patient, and discussing with other team members." Visit Coding OBGYN Date of Service: Aug 13, 2024 Billing Provider: XENA CR CNM GUITAR INSTRUCTOR Common Visit Codes: [id number] OBS CARE (HIGH) GUITAR INSTRUCTOR Procedure Codes: 33006-17- NON-STRESS TEST XENA CR CNM Aug 13, 2024 19:18
== END 2024-08-13 14:20 | disposition home or self-care (01) ==
LOC: LDRP 13:00
PROVIDERS: ADMIT Obstetrics & Gynecology; ATTEND Obstetrics & Gynecology
DX: O24.419 Gestational diabetes mellitus in pregnancy, unspecified control (principal); Z98.890 Other specified postprocedural states; Z79.899 Other long term (current) drug therapy; Z3A.38 38 weeks gestation of pregnancy
CPT/HCPCS: 59025; 76819; 81002; 82948; 82962; 94760; G0378

== ENCOUNTER 2024-08-16 20:00 | Inpatient (IN) | payer MEDICAID ==
[~2024-08-16] VITALS: Ht 167.6 cm; Wt 115.7 kg
[2024-08-16] MEDS ORDERED: LIDOCAINE 2%HCL (LOCAL ANESTH.) INJ 20ML MDV IJ PRN (20:30)
[2024-08-16] MEDS ORDERED: NALBUPHINE HCL 10 MG/1ml INJECTION IV PRN (20:30)
[2024-08-16 21:05] LABS: Urine Bacteria MANY /hpf (None Seen); Urine Blood Negative /uL (Negative); Urine Clarity Turbid (Clear); Urine Color Colorless (Yellow); Urine Hyaline Cast FEW /lpf (0 - 2); Urine Protein, UAD Negative (Negative); Urine Specific Gravity 1.004 (1.001-1.035); Urine Squamous Epithelial Cell MOD /hpf (<5); Urine Urobilinogen Normal (Negative); Urine WBC 7 /HPF (0-5); Urine pH 6.5 (5.0-9.0)
[2024-08-16 21:07] LABS: Basophils # (auto) 0 10 ^3/uL (0-0.2); Basophils % (auto) 0.3 % (0.0-2.0); Eosinophils # (auto) 0 10 ^3/uL (0-0.8); Eosinophils % (auto) 0.3 % (0.0-7.0); Hematocrit 38.6 % (36.0-46.0); Hemoglobin 13.2 g/dL (12.2-16.2); Lymphocytes # (auto) 1.4 10 ^3/uL (0.4-5.4); Lymphocytes % (auto) 13.8 % (10.0-50.0); Mean Corpuscular Hemoglobin 28.6 pg (28.0-32.0); Mean Corpuscular Hgb Conc. 34.2 g/dL (32.0-36.0); Mean Corpuscular Volume 83.6 fL (80.0-100.0); Monocytes # (auto) 0.6 10 ^3/uL (0-1.3); Monocytes % (auto) 5.6 % (0.0-12.0); Neutrophils # (auto) 8.1 10 ^3/uL (1.6-8.6); Platelet Count (auto) 273 10^3/uL (140-450); Red Blood Cells 4.62 10^6/uL (4.0-5.20); Red Cell Distribution Width 15.4 % (11.8-14.3); White Blood Cell 10.1 10^3/uL (4.4-10.8)
[2024-08-16 21:09] LABS: Amphetamine Screen, Urine Neg (NEGATIVE); Barbiturate Scree,Urine Neg (NEGATIVE); Benzodiazephine Screen, Urine Neg (NEGATIVE); Cannabinoid Screen, Urine Neg (NEGATIVE); Cocaine Screen, Urine Neg (NEGATIVE); Opiate Scree,Urine Neg (NEGATIVE); Phencyclidine Screen, Urine Neg (NEGATIVE)
[2024-08-16 21:20] LABS: Alanine Aminotransferase 10 U/L (7-40); Anion Gap 10 (5-15); BUN/Creatinine Ratio 10.5 (10.0-20.0); Calcium 9.4 mg/dL (8.7-10.4); Carbon Dioxide 21 mmol/L (20-31); Glucose 91 mg/dL (74-106); Potassium 3.9 mmol/L (3.5-5.1); Sodium 138 mmol/L (136-145); Total Protein 6.6 g/dL (5.7-8.2)
[2024-08-16 21:21] LABS: Albumin 3.9 g/dL (3.2-4.8); Alkaline Phosphatase 152 U/L (46-116); Aspartate Aminotransferase 11 U/L (13-40); Bilirubin, Total 0.2 mg/dL (0.2-1.0); Blood Urea Nitrogen 6 mg/dL (9-23); Chloride 107 mmol/L (98-107)
[2024-08-16 21:26] LABS: INR 0.92 (0.9-1.15); Partial Thromboplastin Time 27.3 SEC (24.5-34.5); Prothrombin Time 9.8 sec (9.3-11.8)
[2024-08-16] MEDS ORDERED: CALCIUM CARB 500 MG CHEW TAB PO PRN (21:30)
--- NOTE | 2024-08-16 22:21 | DVHHP2 ---
OB CC & HPI Date Date of Admission: Aug 16, 2024 Patient Identification: : 1 Para: 0 EDC: August 23, 2024 EGA: 39 Chief Complaints: Reason for admission: induction of labor Indication for induction: other (GDMA2, Morbid obesity) History of Present Complaints 19y G1Po IUP 39 wk GDMA2 on insulin Admitted for IOL per Dr Reveles. GBS neg. Upon presentation, complains of acute dyspnea, chest discomfort and pressure Denies diaphoresis, left arm / jaw pain, denies hx of HTN, denies anxiety Initial EKG NSR no ST changes, Troponins, CXR and medicine consult pending. Past Medical History Cardiac: No pertinent Hx Pulmonary: No pertinent Hx Central Nervous System: No pertinent Hx GI: No pertinent Hx Hemotology/Oncology: No pertinent Hx Hepatobiliary: No pertinent Hx Psychiatric: No pertinent Hx Musculoskeletal: No pertinent Hx Rheumotologic: No pertinent Hx Infectious Disease: No peritnent Hx ENT: No pertinent Hx Renal/: No pertinent Hx Endocrine: No pertinent Hx Dermatology: No pertinent Hx Past Surgical History: No pertinent Hx OB History OB History Care: Good Care Ultrasounds: Normal mid trimester US Obstetrical Complications: Gestational Diabetes Medical Complications: None Allergies: Coded Allergies: NO KNOWN ALLERGIES (Unverified , 07/09/24) Home Meds Active Scripts Nifedipine (PROCARDIA CAPSULE) 10 Mg Cp, 10 MG PO Q4HR for 20 Days, #80 CAP take until [address] Reveles Prov:XENA CR CNM 07/09/24 Reported Medications Insulin Glargine (Basaglar Kwikpen) 100 Unit/Ml Inj, 18 UNIT SC HS, INJ 07/12/24 Vit W/ Ferrous Fumara ( One Daily) Daily Tab, 1 TAB PO DAILY, #90 TAB 3 Refills 06/28/24 Current Medications Current Medications Medications (Trade) Dose Ordered Sig/Jose Manuel Route PRN Reason Start Time Stop Time Status Last Admin Lactated Ringer's 1,000 ml @ 125 mls/hr Q8H IV 08/16/24 20:30 Nalbuphine HCl (Nubain) 10 mg Q4HP PRN IV MODERATE PAIN (4-6 PAIN SCALE) 08/16/24 20:30 Diagnostic Test (Pha) (Accu-Chek Comfort Curve T) 1 strip Q4HR 08/16/24 22:00 Witch Linda (Tucks) 1 pad PRN PRN TOP PERINEAL AREA DISCOMFORT 08/16/24 20:30 Sodium Lauryl Sulfate (Phisoderm) 240 ml PRN PRN TOP PERINEAL AREA DISCOMFORT 08/16/24 20:30 Benzocaine (Dermoplast) 1 applic PRN PRN TOP PERINEAL AREA DISCOMFORT 08/16/24 20:30 Lidocaine HCl (Xylocaine) 20 ml ONCE PRN IJ PERINEAL AREA DISCOMFORT 08/16/24 20:30 Calcium Carbonate (Tums) 500 mg QIDPRN PRN PO FOR STOMACH DISTRESS 08/16/24 21:30 Family & Social History Family/Social History RPR/VDRL: Negative GBS Status: Negative HBsAG: Negative Review of Systems Constitutional: No symptom reported Ears, Nose, & Throat: No symptom reported Eyes: No symptom reported Pulmonary/Respiratory: Dyspnea, Cough, Other (recent URI) Cardiovascular: Chest Pain Gastrointestinal: No symptom reported Genitourinary: No symptom reported Musculoskeletal: No symptom reported Skin: No symptom reported Psychiatric: No symptom reported Endocrine: No symptom reported Hemotologic/Lymphatic: No symptom reported OB Admission Exam Physical Exam Vitals: Afeb VS HEENT: NCAT Heart: Rhythm Normal Abdomen: Gravid Extremities: Normal Reflexes: Normal Cervical Dilatation: None Effacement: 0% Station: -3 Membranes: Intact Heart Rate: 130's Accelerations: Accelerations Present Decelerations: No Decelerations Short Term Variability: Present Senior Care Variability: Average (6-25) Contractions on Admission: >10 Minutes Apart Intensity: Mild OB Plan Plan Admitting Diagnosis: 19y G1Po IUP 39 wk, Medically indicated induction of labor GDMA2 on insulin Morbid obesity GBS neg Categ 1 FHR Acute chest discomfort, does not appear to be cardiac relateed Plan: Induction, Other (medical clearance first for atypical CP) Induction Methd: Misoprostol protocol Other Plan: R/B/A of IOL discussed EFW 7lb per patient in clinic today Standard indications for C/S delivery discussed. Visit Coding OBGYN Date of Service: Aug 16, 2024 Billing Provider: KHUSHBOO JOSHI DO [employer]DING DAY COORDINATOR Common Visit Codes: [id number] INP/OBS CARE (HIGH) KHUSHBOO JOSHI DO Aug 16, 2024 22:21
--- NOTE | 2024-08-16 22:53 | DVHCONRES ---
Date Seen: Aug 16, 2024 Resident Creating Document: MINNA MAI RESIDENT Referring Physician Dr Herring Reason for Consultation Chest pain History of Present Illness Amanda Evans is a 19-year-old female patient with a 39 week gestation who presents to labor and delivery for induction. Internal medicine was consulted since patient presented spontaneous, nonradiating, retrosternal o ppressive chest pain in functional class IV which lasted approximately 20 minutes (started approximately at 8:30 p.m.), intensity 8/10, associated with dyspnea and dry cough, worsened by deep breaths and superficial palpation, resolved spontaneously. Patient reports nasal congestion which started approximately 24 hours ago, her sister was recently diagnosed with upper respiratory infection. Denies palpitation, syncope, fever, chills, nausea, vomiting, diarrhea, abdominal pain, dysuria, bleeding, visual disturbance since and motor or sensory deficits. Past medical history: Gestational diabetes controlled with insulin Surgical history: Denies Family history: Diabetes in all her family Social history: Lives in [place] with family (next of kin mother). Denies current tobacco, alcohol and other drug abuse Allergies: Denies Home medication: Basaglar 26 UI sc hein. Per Med rec she is on nifedipine and vitamins as well. Patient seen and examined at bedside. Currently has no new complaints. Evaluated EKG which shows normal sinus rhythm with heart rate of approximately 90 beats per minute, no ST alteration. First troponin negative (<3), obtain 1 hour after chest pain started. Planning on completing serial EKGs and troponin. Past Medical History Per HPI Past Surgical History Per HPI Family History Per HPI Social History Per HPI Allergies: Coded Allergies: NO KNOWN ALLERGIES (Unverified , 07/09/24) Allergies Per HPI Home Meds Active Scripts Nifedipine (PROCARDIA CAPSULE) 10 Mg Cp, 10 MG PO Q4HR for 20 Days, #80 CAP take until [address] Reveles Prov:XENA CR CNM 07/09/24 Reported Medications Insulin Glargine (Basaglar Kwikpen) 100 Unit/Ml Inj, 18 UNIT SC HS, INJ 07/12/24 Vit W/ Ferrous Fumara ( One Daily) Daily Tab, 1 TAB PO DAILY, #90 TAB 3 Refills 06/28/24 Home Meds Per HPI Current Medications Current Medications Medications (Trade) Dose Ordered Sig/Jose Manuel Route PRN Reason Start Time Stop Time Status Last Admin Lactated Ringer's 1,000 ml @ 125 mls/hr Q8H IV 08/16/24 20:30 Nalbuphine HCl (Nubain) 10 mg Q4HP PRN IV MODERATE PAIN (4-6 PAIN SCALE) 08/16/24 20:30 Diagnostic Test (Pha) (Accu-Chek Comfort Curve T) 1 strip Q4HR 08/16/24 22:00 Amparo Mckeon (Tucks) 1 pad PRN PRN TOP PERINEAL AREA DISCOMFORT 08/16/24 20:30 Sodium Lauryl Sulfate (Phisoderm) 240 ml PRN PRN TOP PERINEAL AREA DISCOMFORT 08/16/24 20:30 Benzocaine (Dermoplast) 1 applic PRN PRN TOP PERINEAL AREA DISCOMFORT 08/16/24 20:30 Lidocaine HCl (Xylocaine) 20 ml ONCE PRN IJ PERINEAL AREA DISCOMFORT 08/16/24 20:30 Calcium Carbonate (Tums) 500 mg QIDPRN PRN PO FOR STOMACH DISTRESS 08/16/24 21:30 Review of Systems Per HPI Vital Signs Vital signs are not recorded in adult EMR. Blood pressure: 133/65 mm Hg Heart rate: 96 beats per minute Pulse ox: 100% on room air Physical Exam Patient lying in bed, in no acute distress General: Lucid, afebrile, mucosae are moist Cardiovascular: Normal S1 and S2. No murmurs, gallops or rubs Respiratory: Normal ventilation mechanics. Clear lung sounds on auscultation Abdomen: Soft, nontender, no organomegaly, normal bowel sounds. Abdomen compatible with 39 week gestation MSK/skin: Mobilizes 4 limbs. Skin is dry and warm. Mild Nonpitting bilateral lower limb edema Neurological: Oriented in 3 spheres. No motor no sensitive deficits. Pupils are isocoric and reactive Labs/Diagnostic Data Labs Test 08/16/24 22:02 08/16/24 20:36 08/16/24 20:10 Range/Units White Blood Count 10.1 4.4-10.8 10^3/uL Red Blood Count 4.62 4.0-5.20 10^6/uL Hemoglobin 13.2 12.2-16.2 g/dL Hematocrit 38.6 36.0-46.0 % Mean Corpuscular Volume 83.6 80.0-100.0 fL Mean Corpuscular Hemoglobin 28.6 28.0-32.0 pg Mean Corpuscular Hemoglobin Concent 34.2 32.0-36.0 g/dL Red Cell Distribution Width 15.4 H 11.8-14.3 % Platelet Count 273 140-450 10^3/uL Mean Platelet Volume 8.1 6.9-10.8 fL Neutrophils (%) (Auto) 80.0 37.0-80.0 % Lymphocytes (%) (Auto) 13.8 10.0-50.0 % Monocytes (%) (Auto) 5.6 0.0-12.0 % Eosinophils (%) (Auto) 0.3 0.0-7.0 % Basophils (%) (Auto) 0.3 0.0-2.0 % Neutrophils # (Auto) 8.1 1.6-8.6 10 ^3/uL Lymphocytes # (Auto) 1.4 0.4-5.4 10 ^3/uL Monocytes # (Auto) 0.6 0-1.3 10 ^3/uL Eosinophils # (Auto) 0 0-0.8 10 ^3/uL Basophils # (Auto) 0 0-0.2 10 ^3/uL Nucleated Red Blood Cells 0.0 % Prothrombin Time 9.8 9.3-11.8 sec Prothrombin Time INR 0.92 0.9-1.15 Activated Partial Thromboplast Time 27.3 24.5-34.5 SEC Sodium Level 138 136-145 mmol/L Potassium Level 3.9 3.5-5.1 mmol/L Chloride Level 107 98-107 mmol/L Carbon Dioxide Level 21 20-31 mmol/L Anion Gap 10 5-15 Blood Urea Nitrogen 6 L 9-23 mg/dL Creatinine 0.57 0.550-1.02 mg/dL Glomerular Filtration Rate Calc 133 >90 mL/min BUN/Creatinine Ratio 10.5 10.0-20.0 Serum Glucose 91 74-106 mg/dL Calcium Level 9.4 8.7-10.4 mg/dL Total Bilirubin 0.2 0.2-1.0 mg/dL Aspartate Amino Transferase (AST) 11 L 13-40 U/L Alanine Aminotransferase (ALT) 10 7-40 U/L Alkaline Phosphatase 152 H 46-116 U/L B-Type Natriuretic Peptide 31.29 0-100 pg/mL Total Protein 6.6 5.7-8.2 g/dL Albumin 3.9 3.2-4.8 g/dL Treponema pallidum Antibody Non-reactive Negative Urine Color Colorless Yellow Urine Clarity Turbid H Clear Urine pH 6.5 5.0-9.0 Urine Specific [place] 1.004 1.001-1.035 Urine Protein Negative Negative Urine Ketones Negative Negative Urine Blood Negative Negative /uL Urine Nitrite Negative Negative Urine Bilirubin Negative Negative Urine Urobilinogen Normal Negative mg/dL Urine Leukocyte Esterase 2+ Negative /uL Urine RBC 2 0 - 4 /hpf Urine Microscopic WBC 7 H 0-5 /HPF Urine Squamous Epithelial Cells Mod <5 /hpf Urine Bacteria Many H None Seen /hpf Urine Hyaline Casts Few 0 - 2 /lpf Urine Glucose Normal Normal mg/dL Urine Opiates Screen Neg NEGATIVE Urine Fentanyl Screen Neg NEGATIVE Urine Barbiturates Screen Neg NEGATIVE Urine Phencyclidine Screen Neg NEGATIVE Urine Amphetamines Screen Neg NEGATIVE Urine Benzodiazepines Screen Neg NEGATIVE Urine Cocaine Screen Neg NEGATIVE Urine Cannabinoids Screen Neg NEGATIVE Assessment Chest pain likely noncardiac Rule out acute coronary syndrome Rule out pericarditis Asymptomatic bacteriuria in 39 week Gestational diabetes Obesity Plan/Recommendation Ordered serial troponin and EKGs. First set of EKG within normal limits (no ST alteration). First troponin negative (<3). Ordered echocardiogram. Patient has asymptomatic bacteriuria, primary team will decide management Goals of care discussed with patient for over 18 minutes: Full code status Discussed plan with Dr. Dumas, patient and nurses: Completing complementary workup of chest pain (serial EKGs and troponin, echocardiogram), chest pain i mpresses noncardiac since reproduces with superficial palpation and deep breaths. Once workup is negative, patient can continue with induction for labor and delivery. Patient does present asymptomatic bacteriuria, primary team can decide what antibiotic regimen to indicate. Plan discussed with: Patient, Other (There, sister and Nurses) MINNA MAI RESIDENT Aug 16, 2024 22:53
--- NOTE | 2024-08-16 23:41 | DVH ---
CHEST RADIOGRAPH Indication: chest tightness Technique: Single frontal view of the chest was obtained Comparison: None FINDINGS: Lines and Tubes: None Lungs: Clear Pleura: No effusion. No pneumothorax. Cardiomediastinal contours: Unremarkable Bones: Unremarkable IMPRESSION: Clear lungs.
[2024-08-17] MEDS ORDERED: DEXTROSE (50%) 50ML SYRG IV PRN
[2024-08-17] MEDS: cefTRIAXone 1GM/50ML D5W 50 ML IV ONE (00:46)
[2024-08-17] MEDS: LACTATED RINGER'S 1,000 ML IV SCH (00:59)
[2024-08-17] MEDS ORDERED: miSOPROStol 50 MCG per PRE-CUT 1/2 TAB PO PRN (01:15)
[2024-08-17] MEDS: miSOPROStol 50 MCG per PRE-CUT 1/2 TAB PO PRN (03:03)
[2024-08-17] MEDS: ACCU-CHEK COMFORT CURVE STRIP VI SCH ×3 (06:00→15:13)
[2024-08-17] MEDS: SODIUM CHLORIDE 0.9% 1,000 ML IV SCH (07:07)
[2024-08-17] MEDS: InsuLIN REG 1unit/0.01ml Soln (100units/ml) SC SCH (08:00)
--- NOTE | 2024-08-17 10:35 | DVHPN2 ---
OB Labor Progress Note Date and Time Seen Date Seen: Aug 17, 2024 Time Seen: 10:30 Subjective Patient reports: No new complaints, Feels better Subjective Comment Denies any chest discomfort, no CP or dyspnea, no cough Received PO cytotec x 2, having mild contractions, pain level 3/10 Denies bleeding. Normal movement + Objective Vital Signs Afeb VS Monitoring Method Monitoring Method: External Heart Rate Heart Rate Variability: Minimal (to moderate) Presence of FHR Accelerations: Yes Presence of FHR Decelerations: No Contractions Contractions Frequency: Other (2 in 10 mins) Contractions Intensity: Mild Contractions Resting Tone: Relaxed Membranes Membranes: Intact Vaginal Exam Vag Exam Deferred: Yes Vaginal Exam Presentation: VTX Medications Medications - Pitocin: No Medication - Epidural: No Lab Results Lab Results Current Medications Medications (Trade) Dose Ordered Sig/Jose Manuel Start Time Stop Time Status Last Admin Dose Admin Lactated Ringer's 1,000 ml @ 125 mls/hr Q8H 08/16/24 20:30 08/17/24 03:16 125 MLS/HR Nalbuphine HCl (Nubain) 10 mg Q4HP PRN 08/16/24 20:30 Diagnostic Test (Pha) (Accu-Chek Comfort Curve T) 1 strip Q4HR 08/16/24 22:00 Witch Linda (Tucks) 1 pad PRN PRN 08/16/24 20:30 Sodium Lauryl Sulfate (Phisoderm) 240 ml PRN PRN 08/16/24 20:30 Benzocaine (Dermoplast) 1 applic PRN PRN 08/16/24 20:30 Lidocaine HCl (Xylocaine) 20 ml ONCE PRN 08/16/24 20:30 Calcium Carbonate (Tums) 500 mg QIDPRN PRN 08/16/24 21:30 Diagnostic Test (Pha) (Accu-Chek Comfort Curve T) 1 strip IQ4HR 08/17/24 00:30 Insulin Human Regular (InsuLIN R) IQ4HR 08/17/24 00:30 Dextrose 50 ml UD PRN 08/17/24 00:00 Misoprostol (Cytotec) 50 mcg Q4HPRN PRN 08/17/24 01:15 08/17/24 00:08 DC Misoprostol (Cytotec) 50 mcg Q4HPRN PRN 08/17/24 00:15 08/17/24 07:01 50 MCG Ceftriaxone Sodium 50 ml @ 100 mls/hr ONCE ONCE 08/17/24 00:15 08/17/24 00:44 DC 08/17/24 00:46 100 MLS/HR Sodium Chloride 1,000 ml @ 30 mls/hr Q24H 08/17/24 01:00 Laboratory Tests Test 08/17/24 08:26 08/17/24 00:48 08/16/24 20:36 08/16/24 20:10 Range/Units POC Glucose 78 70-106 mg/dl Troponin I High Sensitivity < 3 L </=34 ng/L White Blood Count 10.1 4.4-10.8 10^3/uL Red Blood Count 4.62 4.0-5.20 10^6/uL Hemoglobin 13.2 12.2-16.2 g/dL Hematocrit 38.6 36.0-46.0 % Mean Corpuscular Volume 83.6 80.0-100.0 fL Mean Corpuscular Hemoglobin 28.6 28.0-32.0 pg Mean Corpuscular Hemoglobin Concent 34.2 32.0-36.0 g/dL Red Cell Distribution Width 15.4 H 11.8-14.3 % Platelet Count 273 140-450 10^3/uL Mean Platelet Volume 8.1 6.9-10.8 fL Neutrophils (%) (Auto) 80.0 37.0-80.0 % Lymphocytes (%) (Auto) 13.8 10.0-50.0 % Monocytes (%) (Auto) 5.6 0.0-12.0 % Eosinophils (%) (Auto) 0.3 0.0-7.0 % Basophils (%) (Auto) 0.3 0.0-2.0 % Neutrophils # (Auto) 8.1 1.6-8.6 10 ^3/uL Lymphocytes # (Auto) 1.4 0.4-5.4 10 ^3/uL Monocytes # (Auto) 0.6 0-1.3 10 ^3/uL Eosinophils # (Auto) 0 0-0.8 10 ^3/uL Basophils # (Auto) 0 0-0.2 10 ^3/uL Nucleated Red Blood Cells 0.0 % Prothrombin Time 9.8 9.3-11.8 sec Prothrombin Time INR 0.92 0.9-1.15 Activated Partial Thromboplast Time 27.3 24.5-34.5 SEC Sodium Level 138 136-145 mmol/L Potassium Level 3.9 3.5-5.1 mmol/L Chloride Level 107 98-107 mmol/L Carbon Dioxide Level 21 20-31 mmol/L Anion Gap 10 5-15 Blood Urea Nitrogen 6 L 9-23 mg/dL Creatinine 0.57 0.550-1.02 mg/dL Glomerular Filtration Rate Calc 133 >90 mL/min BUN/Creatinine Ratio 10.5 10.0-20.0 Serum Glucose 91 74-106 mg/dL Calcium Level 9.4 8.7-10.4 mg/dL Total Bilirubin 0.2 0.2-1.0 mg/dL Aspartate Amino Transferase (AST) 11 L 13-40 U/L Alanine Aminotransferase (ALT) 10 7-40 U/L Alkaline Phosphatase 152 H 46-116 U/L B-Type Natriuretic Peptide 31.29 0-100 pg/mL Total Protein 6.6 5.7-8.2 g/dL Albumin 3.9 3.2-4.8 g/dL Treponema pallidum Antibody Non-reactive Negative Urine Color Colorless Yellow Urine Clarity Turbid H Clear Urine pH 6.5 5.0-9.0 Urine Specific [place] 1.004 1.001-1.035 Urine Protein Negative Negative Urine Ketones Negative Negative Urine Blood Negative Negative /uL Urine Nitrite Negative Negative Urine Bilirubin Negative Negative Urine Urobilinogen Normal Negative mg/dL Urine Leukocyte Esterase 2+ Negative /uL Urine RBC 2 0 - 4 /hpf Urine Microscopic WBC 7 H 0-5 /HPF Urine Squamous Epithelial Cells Mod <5 /hpf Urine Bacteria Many H None Seen /hpf Urine Hyaline Casts Few 0 - 2 /lpf Urine Glucose Normal Normal mg/dL Urine Opiates Screen Neg NEGATIVE Urine Fentanyl Screen Neg NEGATIVE Urine Barbiturates Screen Neg NEGATIVE Urine Phencyclidine Screen Neg NEGATIVE Urine Amphetamines Screen Neg NEGATIVE Urine Benzodiazepines Screen Neg NEGATIVE Urine Cocaine Screen Neg NEGATIVE Urine Cannabinoids Screen Neg NEGATIVE Consulting with Regarding IM re: CP resolved, pending ECHO Assessment Assessment Term IUP 39.1 wk, GDMA2 Morbid obesity Non cardiac chest discomfort, resolved Plan Plan Continue current care with labor induction/ cytotec per protocol Appreciate IM consult for CP Observe FHR pattern Continue glucose monitoring Plan discussed with: Patient, Other (Collaborating MD IM service/ contamination consultant, and L&D RN) Visit Coding OBGYN Date of Service: Aug 17, 2024 Billing Provider: KHUSHBOO JOSHI DO MACHINE HAMPER MAKER Common Visit Codes: [id number] INP/OBS CARE(HIGH) KHUSHBOO JOSHI DO Aug 17, 2024 10:35
[2024-08-17] MEDS: D5W/LACTATED RINGERS 1,000 ML IV SCH (11:15)
[2024-08-17] MEDS ORDERED: LACTATED RINGER'S 1,000 ML IV SCH ×2 (11:45)
[2024-08-17] MEDS ORDERED: ACCU-CHEK COMFORT CURVE STRIP VI SCH ×2 (12:00)
--- NOTE | 2024-08-17 12:08 | ECG ---
[facility] Test Date: 2024-08-16 Test Time: 23:07:17 Pat Name: JORGE LUIS LOVE Department: Room: [facility] A Gender: F Private Tutor: TONEY WANG : 2005 Requested By: MINNA MAI Order Number: [id number] Reading MD: Jerald Lott Measurements Intervals [place] Rate: 96 P: 35 ME: 130 QRS: 17 QRSD: 70 T: 17 QT: 356 QTc: 449 Interpretive Statements Normal sinus rhythm Electronically Signed On 08-18-2024 20:12:02 PDT by Jerald Lott Please click the below link to view image of tracing.
--- NOTE | 2024-08-17 12:08 | ECG ---
[facility] Test Date: 2024-08-16 Test Time: 22:03:39 Pat Name: JORGE LUIS LOVE Department: Room: [facility] A Gender: F Dietetics Professor: TONEY WANG : 2005 Requested By: MINNA MAI Order Number: [id number] Reading MD: Jerald Lott Measurements Intervals [place] Rate: 98 P: 42 GA: 120 QRS: 15 QRSD: 72 T: 11 QT: 344 QTc: 439 Interpretive Statements Normal sinus rhythm Electronically Signed On 08-18-2024 20:12:00 PDT by Jerald Lott Please click the below link to view image of tracing.
--- NOTE | 2024-08-17 12:08 | ECG ---
[facility] Test Date: 2024-08-17 Test Time: 01:01:47 Pat Name: JORGE LUIS LOVE Department: Room: [facility] A Gender: F Cloth Finisher: TONEY WANG : 2005 Requested By: MINNA MAI Order Number: [id number] Reading MD: Jerald Lott Measurements Intervals [place] Rate: 91 P: 26 DC: 134 QRS: 23 QRSD: 76 T: 26 QT: 358 QTc: 440 Interpretive Statements Normal sinus rhythm Electronically Signed On 08-18-2024 20:12:05 PDT by Jerald Lott Please click the below link to view image of tracing.
--- NOTE | 2024-08-17 19:59 | DVHSR ---
APPROVED REPORT EXAM: Two-dimensional and M-mode echocardiogram with Doppler and color Doppler. RISK FACTORS Height: 5' 4", DIMENSIONS LVDd5.3 (3.8-5.7cm)LA (2D)3.9 (1.9-4.0cm)Aortic Root2.9 (2.0-3.7cm) LVDs3.8 (2.5-4.0cm)LA (MM) (1.9-4.0cm)Aortic Cusp Exc1.7 (1.5-2.0cm) EF (%) 55.0 (55-70%)Rt. Atrium4.5 (1.9-4.0cm)Asc. Aorta cm IVSd1.0 (0.7-1.1cm)RV (D) (1.8-2.4cm) PWd0.9 (0.7-1.1cm) Mitral Valve MitralMitral Stenosis E wave0.80m/sMV Mean GR.mmHg A wave0.60m/sMV Peak GR.mmHg E/A ratio1.32D MVAcm2 Aortic Valve Aortic ValveAortic Stenosis V10.90m/Juan Jose Mean GR.4mmHg V21.30m/Juan Jose Peak GR.7mmHg LVOT Diameter2.2 (1.8-2.4cm)Doppler AVA2.63cm2 Pulmonic Valve V20.70m/s Conclusion LV EJECTION FRACTION IS 55% NORMAL VALVES NORMAL RV FUNCTION NO EFFUSION
--- NOTE | 2024-08-17 20:31 | DVHPN2 ---
OB Labor Progress Note Date and Time Seen Date Seen: Aug 17, 2024 Time Seen: 20:29 Subjective Patient reports: No new complaints Objective Vital Signs Afeb VS Monitoring Method Monitoring Method: External Heart Rate Heart Rate Baseline: 130 Heart Rate Variability: Moderate Presence of FHR Accelerations: Yes Presence of FHR Decelerations: No Contractions Contractions Frequency: Other (2-3 in 10 mins) Membranes Membranes: Intact Vaginal Exam Vag Exam Deferred: No Vaginal Exam Dilation: 1 Vaginal Exam Effacement: 60 Vaginal Exam Station: -2 Vaginal Exam Presentation: VTX Vaginal Exam Show: None Medications Medications - Pitocin: No Medication - Epidural: No Lab Results Lab Results Current Medications Medications (Trade) Dose Ordered Sig/Jose Manuel Start Time Stop Time Status Last Admin Dose Admin Lactated Ringer's 1,000 ml @ 125 mls/hr Q8H 08/16/24 20:30 08/17/24 11:13 DC 08/17/24 03:16 125 MLS/HR Nalbuphine HCl (Nubain) 10 mg Q4HP PRN 08/16/24 20:30 Diagnostic Test (Pha) (Accu-Chek Comfort Curve T) 1 strip Q4HR 08/16/24 22:00 08/17/24 11:13 DC [place] Linda (Tucks) 1 pad PRN PRN 08/16/24 20:30 Sodium Lauryl Sulfate (Phisoderm) 240 ml PRN PRN 08/16/24 20:30 Benzocaine (Dermoplast) 1 applic PRN PRN 08/16/24 20:30 Lidocaine HCl (Xylocaine) 20 ml ONCE PRN 08/16/24 20:30 Calcium Carbonate (Tums) 500 mg QIDPRN PRN 08/16/24 21:30 Diagnostic Test (Pha) (Accu-Chek Comfort Curve T) 1 strip IQ4HR 08/17/24 00:30 08/17/24 11:13 DC 08/17/24 10:47 1 STRIP Insulin Human Regular (InsuLIN R) IQ4HR 08/17/24 00:30 Dextrose 50 ml UD PRN 08/17/24 00:00 Misoprostol (Cytotec) 50 mcg Q4HPRN PRN 08/17/24 01:15 08/17/24 00:08 DC Misoprostol (Cytotec) 50 mcg Q4HPRN PRN 08/17/24 00:15 08/17/24 15:20 50 MCG Ceftriaxone Sodium 50 ml @ 100 mls/hr ONCE ONCE 08/17/24 00:15 08/17/24 00:44 DC 08/17/24 00:46 100 MLS/HR Sodium Chloride 1,000 ml @ 30 mls/hr Q24H 08/17/24 01:00 Diagnostic Test (Pha) (Accu-Chek Comfort Curve T) 1 strip Q2HR 08/17/24 12:00 08/17/24 11:34 DC Diagnostic Test (Pha) (Accu-Chek Comfort Curve T) 1 strip Q2HR 08/17/24 12:00 08/17/24 11:31 DC Dextrose/Lactated Ringer's 1,000 ml @ 125 mls/hr Q8H 08/17/24 11:15 Lactated Ringer's 1,000 ml @ 125 mls/hr Q8H 08/17/24 11:45 08/17/24 11:57 DC Diagnostic Test (Pha) (Accu-Chek Comfort Curve T) 1 strip Q4HR 08/17/24 12:00 08/17/24 15:13 1 STRIP Lactated Ringer's 1,000 ml @ 125 mls/hr Q8H 08/17/24 11:45 08/17/24 11:59 DC Laboratory Tests Test 08/17/24 19:56 08/17/24 00:48 08/16/24 20:36 08/16/24 20:10 Range/Units POC Glucose 102 70-106 mg/dl Troponin I High Sensitivity < 3 L </=34 ng/L White Blood Count 10.1 4.4-10.8 10^3/uL Red Blood Count 4.62 4.0-5.20 10^6/uL Hemoglobin 13.2 12.2-16.2 g/dL Hematocrit 38.6 36.0-46.0 % Mean Corpuscular Volume 83.6 80.0-100.0 fL Mean Corpuscular Hemoglobin 28.6 28.0-32.0 pg Mean Corpuscular Hemoglobin Concent 34.2 32.0-36.0 g/dL Red Cell Distribution Width 15.4 H 11.8-14.3 % Platelet Count 273 140-450 10^3/uL Mean Platelet Volume 8.1 6.9-10.8 fL Neutrophils (%) (Auto) 80.0 37.0-80.0 % Lymphocytes (%) (Auto) 13.8 10.0-50.0 % Monocytes (%) (Auto) 5.6 0.0-12.0 % Eosinophils (%) (Auto) 0.3 0.0-7.0 % Basophils (%) (Auto) 0.3 0.0-2.0 % Neutrophils # (Auto) 8.1 1.6-8.6 10 ^3/uL Lymphocytes # (Auto) 1.4 0.4-5.4 10 ^3/uL Monocytes # (Auto) 0.6 0-1.3 10 ^3/uL Eosinophils # (Auto) 0 0-0.8 10 ^3/uL Basophils # (Auto) 0 0-0.2 10 ^3/uL Nucleated Red Blood Cells 0.0 % Prothrombin Time 9.8 9.3-11.8 sec Prothrombin Time INR 0.92 0.9-1.15 Activated Partial Thromboplast Time 27.3 24.5-34.5 SEC Sodium Level 138 136-145 mmol/L Potassium Level 3.9 3.5-5.1 mmol/L Chloride Level 107 98-107 mmol/L Carbon Dioxide Level 21 20-31 mmol/L Anion Gap 10 5-15 Blood Urea Nitrogen 6 L 9-23 mg/dL Creatinine 0.57 0.550-1.02 mg/dL Glomerular Filtration Rate Calc 133 >90 mL/min BUN/Creatinine Ratio 10.5 10.0-20.0 Serum Glucose 91 74-106 mg/dL Calcium Level 9.4 8.7-10.4 mg/dL Total Bilirubin 0.2 0.2-1.0 mg/dL Aspartate Amino Transferase (AST) 11 L 13-40 U/L Alanine Aminotransferase (ALT) 10 7-40 U/L Alkaline Phosphatase 152 H 46-116 U/L B-Type Natriuretic Peptide 31.29 0-100 pg/mL Total Protein 6.6 5.7-8.2 g/dL Albumin 3.9 3.2-4.8 g/dL Treponema pallidum Antibody Non-reactive Negative Urine Color Colorless Yellow Urine Clarity Turbid H Clear Urine pH 6.5 5.0-9.0 Urine Specific [place] 1.004 1.001-1.035 Urine Protein Negative Negative Urine Ketones Negative Negative Urine Blood Negative Negative /uL Urine Nitrite Negative Negative Urine Bilirubin Negative Negative Urine Urobilinogen Normal Negative mg/dL Urine Leukocyte Esterase 2+ Negative /uL Urine RBC 2 0 - 4 /hpf Urine Microscopic WBC 7 H 0-5 /HPF Urine Squamous Epithelial Cells Mod <5 /hpf Urine Bacteria Many H None Seen /hpf Urine Hyaline Casts Few 0 - 2 /lpf Urine Glucose Normal Normal mg/dL Urine Opiates Screen Neg NEGATIVE Urine Fentanyl Screen Neg NEGATIVE Urine Barbiturates Screen Neg NEGATIVE Urine Phencyclidine Screen Neg NEGATIVE Urine Amphetamines Screen Neg NEGATIVE Urine Benzodiazepines Screen Neg NEGATIVE Urine Cocaine Screen Neg NEGATIVE Urine Cannabinoids Screen Neg NEGATIVE Assessment Assessment Induction of labor, 39.1 wk for GDMA2, Morbid obesity Plan Plan Cytotec 50 mcg PO x 4 doses Cytotec 25mcg PV inserted now, re assess in 3-4 hours Continue labor induction Plan discussed with: Patient, Other (RN) Visit Coding OBGYN Date of Service: Aug 17, 2024 Billing Provider: KHUSHBOO JOSHI DO SUSPENDER CUTTER Common Visit Codes: [id number] INP/OBS CARE(MOD) KHUSHBOO JOSHI DO Aug 17, 2024 20:31
[2024-08-18] MEDS ORDERED: NALOXONE HCL 0.4 MG/ML VIAL IV ONE ×2 (02:15→03:45)
[2024-08-18] MEDS ORDERED: TERBUTALINE SULFATE 1 MG/ML 1ML VIAL SC PRN (02:15)
[2024-08-18] MEDS ORDERED: ePHEDrine SULFATE 50 MG/ML AMP IV ONE ×2 (02:15→03:45)
[2024-08-18] MEDS ORDERED: LIDOCAINE HCL 2 %PF INJ 10ML AMP IJ ONE (03:45)
[2024-08-18] MEDS: ACETAMINOPHEN 500 MG TAB or CAP PO STA (05:45)
[2024-08-18] MEDS: ROPIVACAINE HCL 200 ML ONE (05:58)
--- NOTE | 2024-08-18 06:50 | DVHPN2 ---
OB Labor Progress Note Date and Time Seen Date Seen: Aug 18, 2024 Time Seen: 06:46 Subjective Patient reports: No new complaints, Feels better Subjective Comment s/p spont SROM 2+ mec last night approx 2100 s/p Epidural, comfortable Denies any acute pain, no fever/chills Objective Vital Signs Afeb VS Monitoring Method Monitoring Method: Internal (IUPC/FSE placed ) Heart Rate Heart Rate Baseline: 140 Heart Rate Variability: Moderate Presence of FHR Accelerations: Yes Presence of FHR Decelerations: No Contractions Contractions Frequency: Other (3 in 10 mins) Contractions Intensity: Moderate Contractions Resting Tone: Relaxed Membranes Membranes: Ruptured Amniotic Fluid Color: STREET LIGHT SERVICER SUPERVISOR Meconium Vaginal Exam Vag Exam Deferred: No Vaginal Exam Dilation: 4 Vaginal Exam Effacement: 90 Vaginal Exam Station: -2 Vaginal Exam Presentation: VTX Vaginal Exam Show: None Medications Medications - Pitocin: No Medication - Epidural: Yes Lab Results Lab Results Vital Signs Date Time Temp Pulse Resp B/P (MAP) Pulse Ox O2 Delivery O2 Flow Rate FiO2 08/18/24 05:45 99.8 Current Medications Medications (Trade) Dose Ordered Sig/Jose Manuel Start Time Stop Time Status Last Admin Dose Admin Lactated Ringer's 1,000 ml @ 125 mls/hr Q8H 08/16/24 20:30 08/17/24 11:13 DC 08/17/24 03:16 125 MLS/HR Nalbuphine HCl (Nubain) 10 mg Q4HP PRN 08/16/24 20:30 Diagnostic Test (Pha) (Accu-Chek Comfort Curve T) 1 strip Q4HR 08/16/24 22:00 08/17/24 11:13 ANDRES Mckeon (Tucks) 1 pad PRN PRN 08/16/24 20:30 Sodium Lauryl Sulfate (Phisoderm) 240 ml PRN PRN 08/16/24 20:30 Benzocaine (Dermoplast) 1 applic PRN PRN 08/16/24 20:30 Lidocaine HCl (Xylocaine) 20 ml ONCE PRN 08/16/24 20:30 Calcium Carbonate (Tums) 500 mg QIDPRN PRN 08/16/24 21:30 Diagnostic Test (Pha) (Accu-Chek Comfort Curve T) 1 strip IQ4HR 08/17/24 00:30 08/17/24 11:13 DC 08/17/24 10:47 1 STRIP Insulin Human Regular (InsuLIN R) IQ4HR 08/17/24 00:30 Dextrose 50 ml UD PRN 08/17/24 00:00 Misoprostol (Cytotec) 50 mcg Q4HPRN PRN 08/17/24 01:15 08/17/24 00:08 DC Misoprostol (Cytotec) 50 mcg Q4HPRN PRN 08/17/24 00:15 08/17/24 20:19 50 MCG Ceftriaxone Sodium 50 ml @ 100 mls/hr ONCE ONCE 08/17/24 00:15 08/17/24 00:44 DC 08/17/24 00:46 100 MLS/HR Sodium Chloride 1,000 ml @ 30 mls/hr Q24H 08/17/24 01:00 Diagnostic Test (Pha) (Accu-Chek Comfort Curve T) 1 strip Q2HR 08/17/24 12:00 08/17/24 11:34 DC Diagnostic Test (Pha) (Accu-Chek Comfort Curve T) 1 strip Q2HR 08/17/24 12:00 08/17/24 11:31 DC Dextrose/Lactated Ringer's 1,000 ml @ 125 mls/hr Q8H 08/17/24 11:15 Lactated Ringer's 1,000 ml @ 125 mls/hr Q8H 08/17/24 11:45 08/17/24 11:57 DC Diagnostic Test (Pha) (Accu-Chek Comfort Curve T) 1 strip Q4HR 08/17/24 12:00 08/17/24 20:00 1 STRIP Lactated Ringer's 1,000 ml @ 125 mls/hr Q8H 08/17/24 11:45 08/17/24 11:59 DC Oxytocin 1,000 ml @ 6 ml/hr Q24H 08/18/24 02:15 Terbutaline Sulfate (Brethine Inj) 0.25 mg ONCE PRN 08/18/24 02:15 Oxytocin 500 ml @ 999 mls/hr Q31M ONCE 08/18/24 02:15 08/18/24 02:45 DC Oxytocin 500 ml @ 125 mls/hr Q4H ONCE 08/18/24 02:45 08/18/24 06:44 DC Naloxone HCl (Narcan) 0.2 mg PRN ONCE 08/18/24 03:45 08/18/24 03:46 DC Ephedrine Sulfate (ePHEDrine SULFATE) 10 mg PRN ONCE 08/18/24 03:45 08/18/24 03:46 DC Lidocaine HCl (Xylocaine-Pf 2% Injection) 10 ml ONCE ONCE 08/18/24 03:45 08/18/24 03:46 DC Acetaminophen (Tylenol Tablet Or Capsule) 650 mg ONCE STAT 08/18/24 05:36 08/18/24 05:41 DC 08/18/24 05:45 650 MG Laboratory Tests Test 08/18/24 05:19 08/17/24 00:48 08/16/24 20:36 08/16/24 20:10 Range/Units POC Glucose 97 70-106 mg/dl Troponin I High Sensitivity < 3 L </=34 ng/L White Blood Count 10.1 4.4-10.8 10^3/uL Red Blood Count 4.62 4.0-5.20 10^6/uL Hemoglobin 13.2 12.2-16.2 g/dL Hematocrit 38.6 36.0-46.0 % Mean Corpuscular Volume 83.6 80.0-100.0 fL Mean Corpuscular Hemoglobin 28.6 28.0-32.0 pg Mean Corpuscular Hemoglobin Concent 34.2 32.0-36.0 g/dL Red Cell Distribution Width 15.4 H 11.8-14.3 % Platelet Count 273 140-450 10^3/uL Mean Platelet Volume 8.1 6.9-10.8 fL Neutrophils (%) (Auto) 80.0 37.0-80.0 % Lymphocytes (%) (Auto) 13.8 10.0-50.0 % Monocytes (%) (Auto) 5.6 0.0-12.0 % Eosinophils (%) (Auto) 0.3 0.0-7.0 % Basophils (%) (Auto) 0.3 0.0-2.0 % Neutrophils # (Auto) 8.1 1.6-8.6 10 ^3/uL Lymphocytes # (Auto) 1.4 0.4-5.4 10 ^3/uL Monocytes # (Auto) 0.6 0-1.3 10 ^3/uL Eosinophils # (Auto) 0 0-0.8 10 ^3/uL Basophils # (Auto) 0 0-0.2 10 ^3/uL Nucleated Red Blood Cells 0.0 % Prothrombin Time 9.8 9.3-11.8 sec Prothrombin Time INR 0.92 0.9-1.15 Activated Partial Thromboplast Time 27.3 24.5-34.5 SEC Sodium Level 138 136-145 mmol/L Potassium Level 3.9 3.5-5.1 mmol/L Chloride Level 107 98-107 mmol/L Carbon Dioxide Level 21 20-31 mmol/L Anion Gap 10 5-15 Blood Urea Nitrogen 6 L 9-23 mg/dL Creatinine 0.57 0.550-1.02 mg/dL Glomerular Filtration Rate Calc 133 >90 mL/min BUN/Creatinine Ratio 10.5 10.0-20.0 Serum Glucose 91 74-106 mg/dL Calcium Level 9.4 8.7-10.4 mg/dL Total Bilirubin 0.2 0.2-1.0 mg/dL Aspartate Amino Transferase (AST) 11 L 13-40 U/L Alanine Aminotransferase (ALT) 10 7-40 U/L Alkaline Phosphatase 152 H 46-116 U/L B-Type Natriuretic Peptide 31.29 0-100 pg/mL Total Protein 6.6 5.7-8.2 g/dL Albumin 3.9 3.2-4.8 g/dL Treponema pallidum Antibody Non-reactive Negative Urine Color Colorless Yellow Urine Clarity Turbid H Clear Urine pH 6.5 5.0-9.0 Urine Specific [place] 1.004 1.001-1.035 Urine Protein Negative Negative Urine Ketones Negative Negative Urine Blood Negative Negative /uL Urine Nitrite Negative Negative Urine Bilirubin Negative Negative Urine Urobilinogen Normal Negative mg/dL Urine Leukocyte Esterase 2+ Negative /uL Urine RBC 2 0 - 4 /hpf Urine Microscopic WBC 7 H 0-5 /HPF Urine Squamous Epithelial Cells Mod <5 /hpf Urine Bacteria Many H None Seen /hpf Urine Hyaline Casts Few 0 - 2 /lpf Urine Glucose Normal Normal mg/dL Urine Opiates Screen Neg NEGATIVE Urine Fentanyl Screen Neg NEGATIVE Urine Barbiturates Screen Neg NEGATIVE Urine Phencyclidine Screen Neg NEGATIVE Urine Amphetamines Screen Neg NEGATIVE Urine Benzodiazepines Screen Neg NEGATIVE Urine Cocaine Screen Neg NEGATIVE Urine Cannabinoids Screen Neg NEGATIVE Assessment Assessment 1. Term IUP, GDMA2 2. Induction of labor 3. SROM- mec fluid Plan Plan 1. IUPC/FSE placed 2. Will start IV Pitocin augmentation, as needed 3. Continue to observe FHR, intermittent categ 2 at times (minimal variability) w/ meconium stained fluid Plan discussed with: Patient, Other (RN) Visit Coding OBGYN Date of Service: Aug 18, 2024 Billing Provider: KHUSHBOO JOSHI DO SAW BOSS Common Visit Codes: [id number] INP/OBS CARE(MOD) KHUSHBOO JOSHI DO Aug 18, 2024 06:50
[2024-08-18] MEDS: LACT. RINGERS/OXYTOCIN 20UNITS 1,000 ML IV SCH (07:26)
[2024-08-18] MEDS: DERMOPLAST 60ML BOTTLE TOP PRN (12:11)
[2024-08-18] MEDS: WITCH HAZEL-GLYCERIN PAD TOP PRN (12:12)
[2024-08-18] MEDS: PHISODERM TOP SOLN 240ML BTL TOP PRN (12:12)
--- NOTE | 2024-08-18 12:23 | LDN2 ---
Labor and Delivery Note Date 08/18/24 Age 19 1 Para 1 AB 0 EDC 39.1 EGA 39.1 wk Diagnosis GDMA2, MORBID OBESITY, IUP 39 WK Vaginal Delivery: VTX Vacuum Assisted: No Placenta: Spontaneous Sex: Female Weight PENDING Apgars 12/31 Nuchal Cord Transected: No (NUCHAL CORD X 1) Amniotic Fluid: Meconium Stained Anesthesia EPIDURAL Episiotomy: No Extension: No Repaired with 2-0 CHROMIC EBL 75 ML Labs Blood Bank 08/16/24 20:36: Blood Type O POSITIVE Complications NONE Visit Coding OBGYN Date of Service: Aug 18, 2024 Billing Provider: KHUSHBOO JOSHI DO MEASURING MACHINE OPERATOR Common Visit Codes: PROCEDURE ONLY MEASURING MACHINE OPERATOR Procedure Codes: [id number] OB CARE,VAG DELIVERY (REPAIR 2ND DEG LACERA TION) KHUSHBOO JOSHI DO Aug 18, 2024 12:23
[2024-08-18] MEDS: LACT. RINGERS/OXYTOCIN 20UNITS 500 ML IV ONE ×2 (12:44→12:46)
[2024-08-18] MEDS ORDERED: ONDANSETRON ODT 4 MG TAB PO PRN (12:45)
[2024-08-18] MEDS: ACETAMINOPHEN 325 MG TAB PO PRN (13:39)
[2024-08-18 16:23] VITALS: BP 120/72; PULSE 82; RESP 20; TEMP 97.8
[2024-08-18] MEDS: cefOXitin 2GM/100ML 100 ML IV ONE (16:41)
[2024-08-18 18:30] VITALS: O2SAT 99
[2024-08-18] MEDS: IBUPROFEN 600 MG TAB PO PRN (18:36)
[2024-08-18 18:38] VITALS: BP 127/72; PULSE 81; RESP 16; TEMP 98; O2SAT 99
[2024-08-18] MEDS ORDERED: DOCUSATE SOD 100 MG CAP PO SCH (22:00)
[2024-08-18 22:30] VITALS: BP 127/62; PULSE 78; RESP 17; TEMP 97.7; O2SAT 99
[2024-08-19 03:00] VITALS: BP 119/60; PULSE 88; RESP 16; TEMP 98.6; O2SAT 98
--- NOTE | 2024-08-19 05:29 | DVHDS2 ---
Discharge Summary Date of Admission Aug 16, 2024 at 20:00 Date of Discharge: Aug 19, 2024 Admitting Diagnosis Term IUP 39 wk, Morbid obesity, GDMA2 Non cardiac chest pain, gastritis Labs/Diagnostic Data: Laboratory Results Test 08/18/24 23:20 08/17/24 00:48 08/16/24 20:36 08/16/24 20:10 POC Glucose 103 mg/dl (70-106) Troponin I High Sensitivity < 3 ng/L (</=34) White Blood Count 10.1 10^3/uL (4.4-10.8) Red Blood Count 4.62 10^6/uL (4.0-5.20) Hemoglobin 13.2 g/dL (12.2-16.2) Hematocrit 38.6 % (36.0-46.0) Mean Corpuscular Volume 83.6 fL (80.0-100.0) Mean Corpuscular Hemoglobin 28.6 pg (28.0-32.0) Mean Corpuscular Hemoglobin Concent 34.2 g/dL (32.0-36.0) Red Cell Distribution Width 15.4 % (11.8-14.3) Platelet Count 273 10^3/uL (140-450) Mean Platelet Volume 8.1 fL (6.9-10.8) Neutrophils (%) (Auto) 80.0 % (37.0-80.0) Lymphocytes (%) (Auto) 13.8 % (10.0-50.0) Monocytes (%) (Auto) 5.6 % (0.0-12.0) Eosinophils (%) (Auto) 0.3 % (0.0-7.0) Basophils (%) (Auto) 0.3 % (0.0-2.0) Neutrophils # (Auto) 8.1 10 ^3/uL (1.6-8.6) Lymphocytes # (Auto) 1.4 10 ^3/uL (0.4-5.4) Monocytes # (Auto) 0.6 10 ^3/uL (0-1.3) Eosinophils # (Auto) 0 10 ^3/uL (0-0.8) Basophils # (Auto) 0 10 ^3/uL (0-0.2) Nucleated Red Blood Cells 0.0 % Prothrombin Time 9.8 sec (9.3-11.8) Prothrombin Time INR 0.92 (0.9-1.15) Activated Partial Thromboplast Time 27.3 SEC (24.5-34.5) Sodium Level 138 mmol/L (136-145) Potassium Level 3.9 mmol/L (3.5-5.1) Chloride Level 107 mmol/L (98-107) Carbon Dioxide Level 21 mmol/L (20-31) Anion Gap 10 (5-15) Blood Urea Nitrogen 6 mg/dL (9-23) Creatinine 0.57 mg/dL (0.550-1.02) Glomerular Filtration Rate Calc 133 mL/min (>90) BUN/Creatinine Ratio 10.5 (10.0-20.0) Serum Glucose 91 mg/dL (74-106) Calcium Level 9.4 mg/dL (8.7-10.4) Total Bilirubin 0.2 mg/dL (0.2-1.0) Aspartate Amino Transferase (AST) 11 U/L (13-40) Alanine Aminotransferase (ALT) 10 U/L (7-40) Alkaline Phosphatase 152 U/L (46-116) B-Type Natriuretic Peptide 31.29 pg/mL (0-100) Total Protein 6.6 g/dL (5.7-8.2) Albumin 3.9 g/dL (3.2-4.8) Treponema pallidum Antibody Non-reactive (Negative) Urine Color Colorless (Yellow) Urine Clarity Turbid (Clear) Urine pH 6.5 (5.0-9.0) Urine Specific [place] 1.004 (1.001-1.035) Urine Protein Negative (Negative) Urine Ketones Negative (Negative) Urine Blood Negative /uL (Negative) Urine Nitrite Negative (Negative) Urine Bilirubin Negative (Negative) Urine Urobilinogen Normal mg/dL (Negative) Urine Leukocyte Esterase 2+ /uL (Negative) Urine RBC 2 /hpf (0 - 4) Urine Microscopic WBC 7 /HPF (0-5) Urine Squamous Epithelial Cells Mod /hpf (<5) Urine Bacteria Many /hpf (None Seen) Urine Hyaline Casts Few /lpf (0 - 2) Urine Glucose Normal mg/dL (Normal) Urine Opiates Screen Neg (NEGATIVE) Urine Fentanyl Screen Neg (NEGATIVE) Urine Barbiturates Screen Neg (NEGATIVE) Urine Phencyclidine Screen Neg (NEGATIVE) Urine Amphetamines Screen Neg (NEGATIVE) Urine Benzodiazepines Screen Neg (NEGATIVE) Urine Cocaine Screen Neg (NEGATIVE) Urine Cannabinoids Screen Neg (NEGATIVE) Other Laboratory Tests 08/16/24 20:36 Brief Hx & Hospital Course: Medically indicated induction of labor Normal progress of labor Epidural with 2nd deg perineal laceration remained euglycemic throughout hospitalization Normal course, meeting all appropriate milestones Initial complaints of chest discomfort IM consult with negative acute cardiac work up Non cardiac chest pain resolved, likely GI GERD vs gastritis Consults/Reason for consult IM for chest pain Operations or Procedures Induction of labor w/ Condition at Discharge: Stable Final Diagnosis/Problems List Term , delivered Secondary Diagnosis: GDMA2 Non cardiac chest pain , resolved Discharge Disposition: Home Discharge Instruct/Medications Diet: Regular Activity: Light activity Activity comment: Pelvic rest x 6 wk Follow Up/Referral: [address] palmer Medications: Ibuprofen PRN pain/cramps Discharge Statement: "Patient was advised to return to the ER or call 911 if any headaches, dizziness, shortness of breath, chest pain, abdominal pain, bleeding, fevers, or worsening of medical condition. Patient was counseled about treatment plan, medications, possible side effects, patientverbalized understanding. All questions were answered to the best of my ability. This discharge took greater then 30 minutes in planning, reviewing documentation, counseling the patient, and discussing with other team members." ASSESSMENT ASSESSMENT Assessment Visit Coding OBGYN Date of Service: Aug 19, 2024 Billing Provider: KHUSHBOO JOSHI DO [employer] Common Visit Codes: 98982-FKC/OBS DISCH DAY >30MIN KHUSHBOO JOSHI DO Aug 19, 2024 05:29
[2024-08-19] MEDS ORDERED: IBU600T PO (05:30)
[2024-08-19 07:00] VITALS: BP 127/69; PULSE 93; RESP 16; TEMP 98.5; O2SAT 97
[2024-08-19 11:00] VITALS: BP 118/59; PULSE 89; RESP 16; TEMP 98.4; O2SAT 98
[2024-08-19 14:30] VITALS: TEMP 98
== END 2024-08-19 15:05 | disposition home or self-care (01) | DRG 560 ==
LOC: LDRP 20:00
PROVIDERS: ADMIT Obstetrics & Gynecology; ATTEND Obstetrics & Gynecology
PROC: 10E0XZZ Delivery of Products of Conception, External Approach (ICD-10-PCS; principal; 2024-08-18)
PROC: 0KQM0ZZ Repair Perineum Muscle, Open Approach (ICD-10-PCS; 2024-08-18)
PROC: 3E0DXGC Introduction of Other Therapeutic Substance into Mouth and Pharynx, External Approach (ICD-10-PCS; 2024-08-18)
DX: O24.424 Gestational diabetes mellitus in childbirth, insulin controlled (principal); Z37.0 Single live birth; E66.01 Morbid (severe) obesity due to excess calories; O99.214 Obesity complicating childbirth; O77.0 Labor and delivery complicated by meconium in amniotic fluid; O70.1 Second degree perineal laceration during delivery; O42.02 Full-term premature rupture of membranes, onset of labor within 24 hours of rupture; O99.62 Diseases of the digestive system complicating childbirth; K21.9 Gastro-esophageal reflux disease without esophagitis; K29.70 Gastritis, unspecified, without bleeding; R82.71 Bacteriuria; Z3A.39 39 weeks gestation of pregnancy
CPT/HCPCS: 36415; 59409; 71045; 80053; 80307; 81001; 82948; 82962; 83880; 84484; 85025; 85610; 85730; 86780; 86850; 86900; 86901; 93005; 93306; 94760; 94762; 96360; 96361; 96365; 96366; G0378; J0694; J2590

== ENCOUNTER 2024-11-20 14:58 | Outpatient (CLI) | payer MEDICAID ==
[~2024-11-20 14:58] MED LIST changes: +IBU600T PO; -INSU1INJ19 SC; -NIFE10CA52 PO
== END 2024-11-20 17:00 | disposition home or self-care (01) ==
LOC: LAB 14:58
PROVIDERS: ATTEND Obstetrics & Gynecology
DX: Z01.812 Encounter for preprocedural laboratory examination (principal); R87.612 Low grade squamous intraepithelial lesion on cytologic smear of cervix (LGSIL)